=== PATIENT | male | born 1940 | race Caucasian/White ===

== ENCOUNTER 2020-02-27 16:57 | Emergency (ER) | payer MEDICARE, OTHER ==
--- NOTE | 2020-02-27 17:11 | EDM.PDOC ---
ED HPI GENERAL MEDICAL PROBLEM - General Stated Complaint: FEVER. CHILLS. SENT FROM [facility]ALK[facility]IN[facility] Time Seen by Provider: 02/27/20 17:08 Source of Information: Reports: Patient History Limitations: Reports: No Limitations - History of Present Illness INITIAL COMMENTS - FREE TEXT/NARRATIVE: 79-year-old male who reports onset of headache this morning when he awoke and it was a frontal headache that was a dull type pain that he rated as a 2/10. It was unusual because he states he usually does not have headaches. He also reports that he felt somewhat cold and chilled and his took his temperature and it was 101F. He also had some malaise he denies any cough. No sore throat. No chest pain. No neck pain or stiffness. No arm or leg weakness. He has nasal congestion that is chronic but it is unchanged and the headache has been coming and going to the day and currently has no pain. He rates his pain as a 0/10. He did urinate this morning but has not really urinated much since then and he reports that he has had no appetite today with decreased oral intake. He was seen initially in the walk-in clinic and had some testing performed which for the most part was negative. He did have a platelet count 137,000 and a slightly elevated lactate with some evidence of renal insufficiency or dehydration. He has no fever now. He was sent over to the emergency department secondary to concerns of needing IV fluids and for reevaluation and potential further workup. He has had no dysuria or hematuria. He has no back pain. The body aches are mostly just pains which were mild and he really does not complain of any of that now. He has had no nausea, vomiting or diarrhea. He has no open wounds anywhere in. There are no areas of redness or soreness on his skin or his feet. He has had problems with need for amputations on his toes but he has no concern on them now. He does state that he was outside of it yesterday and it was rather hot. He does not feel that he drank enough fluids yesterday and he is somewhat concerned that he may be dehydrated. There are no other associated signs or symptoms. There are no other modifying factors. 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) - Related Data Allergies Allergy/AdvReac Type Severity Reaction Status Date / Time tetanus toxoid, adsorbed Allergy Swelling Verified 06/25/14 13:26 Home Meds: Home Meds Insulin Glarg,Human.Rec.Analog [Lantus] 55 units SUBCUT BID 03/09/14 [History] Liraglutide [Victoza] 1.8 mg SUBCUT DAILY 03/09/14 [History] Acetaminophen [Tylenol Extra Strength] 1,000 mg PO Q4HR PRN 06/25/14 [History] B Complex & C No.20/Folic Acid [Virt-Caps (1 mg FA B Comp W-C)] 1 cap PO DAILY 06/25/14 [History] Chlorthalidone 25 mg PO DAILY 06/25/14 [History] Cholecalciferol (Vitamin D3) [Vitamin D3] 1,000 unit PO DAILY 06/25/14 [History] Fluticasone Propionate [Flonase] 2 spray NASBOTH BID 06/25/14 [History] Insulin Aspart [NovoLOG] 32 units SUBCUT ACBRK 06/25/14 [History] Insulin Aspart [NovoLOG] 38 units SUBCUT ASDIRECTED 06/25/14 [History] Lisinopril 30 mg PO DAILY 06/25/14 [History] Omeprazole [Prilosec] 20 mg PO DAILY 06/25/14 [History] Pregabalin [Lyrica] 100 mg PO BID 06/25/14 [History] Vit C/Vit E/Lutein/Minerals 1 [Prosight with Lutein] 1 cap PO DAILY 06/25/14 [History] atorvaSTATin [Lipitor] 10 mg PO DAILY 06/25/14 [History] carvediloL [Carvedilol] 50 mg PO BID 06/25/14 [History] oxyCODONE 5 mg PO QID PRN 06/25/14 [History] cephALEXin [Keflex] 500 mg PO TID 10 Days #30 cap 02/27/20 [Rx] Past Medical History Cardiovascular History: Reports: High Cholesterol, Hypertension Gastrointestinal History: Reports: GERD Endocrine/Metabolic History: Reports: Diabetes, Type II (On insulin) - Past Surgical History GI Surgical History: Reports: Appendectomy, Colon, Colonoscopy Musculoskeletal Surgical History: Reports: Amputation (Multiple toes on both feet), Hip Replacement (Bilateral total hip replacements), Knee Replacement (Bilateral total knee replacements), Shoulder Surgery (Bilateral rotator cuff surgery) Social & Family History - Tobacco Use Smoking Status *Q: Former Smoker (Quit in 1985.) - Alcohol Use Alcohol Use History: Yes Alcohol Use Frequency: Daily (Drinks a glass of wine about every day. Also occasionally has a mixed drink.) - Living Situation & Occupation Living situation: Reports: Occupation: Retired ED ROS GENERAL - Review of Systems Review Of Systems: See Below Constitutional: Reports: Fever, Chills, Malaise HEENT: Reports: No Symptoms Respiratory: Reports: No Symptoms Cardiovascular: Reports: No Symptoms Endocrine: Reports: No Symptoms GI/Abdominal: Reports: No Symptoms : Reports: No Symptoms Musculoskeletal: Reports: Other (Some body aches.) Skin: Reports: No Symptoms Neurological: Reports: Headache Hematologic/Lymphatic: Reports: No Symptoms Immunologic: Reports: No Symptoms ED EXAM, GENERAL - Physical Exam Exam: See Below Exam Limited By: No Limitations General Appearance: Alert, WD/WN, No Apparent Distress Eye Exam: Bilateral Eye: EOMI, Normal Inspection Ears: Normal External Exam, Hearing Grossly Normal Ear Exam: Bilateral Ear: Auricle Normal Nose: Normal Inspection, Normal Mucosa, No Blood Throat/Mouth: Normal Voice, No Airway Compromise, Other (Dry mucous membranes. No posterior pharyngeal erythema.) Head: Atraumatic, Normocephalic Neck: Normal Inspection, Supple, Non-Tender, Full Range of Motion Respiratory/Chest: No Respiratory Distress, Lungs Clear, Normal Breath Sounds, No Accessory Muscle Use, Chest Non-Tender Cardiovascular: Normal Peripheral Pulses, Regular Rate, Rhythm, No JVD, No Murmur Peripheral Pulses: 2+: Radial (L), Radial (R) GI/Abdominal: Normal Bowel Sounds, Soft, Non-Tender, No Mass, Other (Somewhat protuberant) Back Exam: Normal Inspection, Full Range of Motion Extremities: Normal Inspection, Normal Range of Motion, Non-Tender, No Pedal Edema, Normal Capillary Refill Neurological: Alert, Oriented, CN II-XII Intact, Normal Cognition, No Motor/Sensory Deficits Psychiatric: Normal Affect Skin Exam: Warm, Dry, Intact, Normal Color, No Rash Lymphatic: No Adenopathy Course - Vital Signs Last Recorded V/S: Last Vital Signs Temp 36.4 C 02/27/20 17:00 Pulse 65 02/27/20 17:00 Resp 16 02/27/20 17:00 BP 139/78 02/27/20 17:00 Pulse Ox 97 02/27/20 17:00 Orthostatic Blood Pressure [ 139/71 Standing] Orthostatic Blood Pressure [ 137/67 Sitting] Orthostatic Blood Pressure [ 132/70 Supine] - Orders/Labs/Meds Orders: Active Orders 24 hr Category Date Time Status Orthostatic Vital Signs [RC] ONETIME Care 02/27/20 19:06 Active Chest 2V [CR] Stat Exams 02/27/20 17:25 Taken A. PHAGOCYTOPHILUM PCR Urgent Lab 02/27/20 18:00 Received CULTURE URINE [RM] Stat Lab 02/27/20 18:55 Received LYME (B. BURGDORFERI) PCR Urgent Lab 02/27/20 18:00 Received Sodium Chloride 0.9% [Saline Flush] Med 02/27/20 17:25 Active 10 ml FLUSH ASDIRECTED PRN Peripheral IV Insertion Adult [OM.PC] Routine Oth 02/27/20 17:25 Ordered Medication Orders Sodium Chloride (Saline Flush) 10 ml FLUSH ASDIRECTED PRN PRN Reason: Keep Vein Open Last Admin: 02/27/20 19:31 Dose: 10 ml Documented by: Admin: 02/27/20 17:45 Dose: 10 ml Documented by: RIMA Labs: Laboratory Tests 02/27/20 02/27/20 Range/Units 15:45 18:49 Magnesium 1.2 L* (1.8-2.5) mg/dL Urine Color Yellow (YELLOW) Urine Appearance Slightly cloudy (CLEAR) Urine pH 5.0 (5.0-6.5) Ur Specific [place] 1.010 (1.010-1.025) Urine Protein Negative (NEGATIVE) mg/dL Urine Glucose (UA) Normal (NORMAL) mg/dL Urine Ketones Negative (NEGATIVE) mg/dL Urine Occult Blood Negative (NEGATIVE) Urine Nitrite Negative (NEGATIVE) Urine Bilirubin Negative (NEGATIVE) Urine Urobilinogen Normal (NEGATIVE) mg/dL Ur Leukocyte Esterase Moderate H (NEGATIVE) Urine RBC 0-5 (0-5) Urine WBC 5-10 H (0-5) Ur Squamous Epith Cells Occasional (NS,R,O) Urine Bacteria Many H (NS) Meds: Medications Generic Name Dose Route Start Last Admin Trade Name Freq PRN Reason Stop Dose Admin Sodium Chloride 10 ml 02/27/20 17:25 02/27/20 19:31 Saline Flush FLUSH 10 ml ASDIRECTED PRN Administration Keep Vein Open Discontinued Medications Generic Name Dose Route Start Last Admin Trade Name Freq PRN Reason Stop Dose Admin Ceftriaxone Sodium 2 gm 02/27/20 19:22 02/27/20 19:29 Rocephin IVPUSH 02/27/20 19:23 2 gm ONETIME ONE Administration Sodium Chloride 1,000 mls @ 999 mls/hr 02/27/20 17:27 02/27/20 17:40 Normal Saline IV 02/27/20 18:27 999 mls/hr .BOLUS ONE Administration Magnesium Sulfate 2 gm/ Premix 50 mls @ 150 mls/hr 02/27/20 17:52 02/27/20 18:01 IV 02/27/20 18:11 150 mls/hr ONETIME ONE Administration - Radiology Interpretation Free Text/Narrative:: Chest x-ray p.m. lateral shows no acute disease. - Re-Assessments/Exams Free Text/Narrative Re-Assessment/Exam: 02/27/20 17:45: Patient does have a magnesium level of 1.2. His chest x-ray looks clear. He is receiving IV normal saline as a bolus and we are awaiting a urine specimen for testing. I did order labs for anaplasmosis and Lyme testing. He remains hemodynamically stable. 02/27/20 19:20: Patient feels well. Orthostatic vital signs show no change. He has no dizziness or weakness with standing. His urine does show evidence of a urinary tract infection and I did send his urine for culture. I will treat the patient with Rocephin 2 g IV and he appears stable for discharge with normal blood pressure and pulse and no evidence of sepsis at this time. I will discharge the patient with Keflex 500 mg 3 times a day for 10 days. He is encouraged to increase his fluid intake. He should avoid any hot environments. He should follow-up with his primary provider this next week. Precautions and reasons for return to the emergency department were discussed with the patient while he was in the emergency department were detailed in the patient's discharge instructions. Departure - Departure Time of Disposition: 19:45 Disposition: Home, Self-Care 01 Condition: Good (Improved) Clinical Impression: Dehydration, Renal insufficiency UTI (urinary tract infection) Qualifiers: Urinary tract infection type: site unspecified Hematuria presence: without hematuria Qualified Code(s): N39.0 - Urinary tract infection, site not specified - Discharge Information Prescriptions: cephALEXin [Keflex] 500 mg PO TID 10 Days #30 cap Instructions: Urinary Tract Infection, Adult, [id number], Dehydration, Adult, [id number], Rehydration, Adult, Fever, Adult, [id number] Referrals: PCP,None [Ordering Only Provider] - Additional Instructions: Your blood tests did show some evidence of dehydration. They were otherwise reassuring except for a low magnesium level. Your urine test showed evidence of a urinary tract infection. Your chest x-ray was normal. You were given replacement of magnesium emergency department and I will place you on magnesium tablets for the next 5 days. I am also placing you on an antibiotic (Keflex 500 mg) to treat your urinary tract infection. Follow-up with your primary doctor this coming week for recheck and for recheck of your magnesium level. Back to the emergency department for high fever, unrelenting vomiting, worsening weaknes s, shaking chills or any other concerning sign or symptom. Sepsis Event Note (ED) - Focused Exam Vital Signs: Vital Signs Temp Pulse Resp BP Pulse Ox 02/27/20 17:00 36.4 C 65 16 139/78 97 - My Orders Last 24 Hours: My Active Orders 02/27/20 17:25 Chest 2V [CR] Stat Sodium Chloride 0.9% [Saline Flush] 10 ml FLUSH ASDIRECTED PRN Peripheral IV Insertion Adult [OM.PC] Routine 02/27/20 18:00 A. PHAGOCYTOPHILUM PCR Urgent LYME (B. BURGDORFERI) PCR Urgent 02/27/20 18:55 CULTURE URINE [RM] Stat 02/27/20 19:06 Orthostatic Vital Signs [RC] ONETIME - Assessment/Plan Last 24 Hours: My Active Orders 02/27/20 17:25 Chest 2V [CR] Stat Sodium Chloride 0.9% [Saline Flush] 10 ml FLUSH ASDIRECTED PRN Peripheral IV Insertion Adult [OM.PC] Routine 02/27/20 18:00 A. PHAGOCYTOPHILUM PCR Urgent LYME (B. BURGDORFERI) PCR Urgent 02/27/20 18:55 CULTURE URINE [RM] Stat 02/27/20 19:06 Orthostatic Vital Signs [RC] ONETIME
[2020-02-27] MEDS ORDERED: Sodium Chloride 0.9% 1,000 ML IV ONE (17:27)
[2020-02-27] MEDS: Sodium Chloride 0.9% 10 ML Syringe FLUSH PRN ×2 (17:45→19:31)
[2020-02-27] MEDS ORDERED: Magnesium Sulfate/Water 2 GM in Premix Bag 1 BAG IV ONE (17:52)
[2020-02-27] MEDS ORDERED: cefTRIAXone 2 GM Vial IVPUSH ONE (19:22)
[2020-02-27 19:49] VITALS: BP 139/71; PULSE 63
--- NOTE | 2020-02-29 10:53 | CR ---
CHEST TWO VIEWS INDICATION: Fever. Chills. PA and lateral views of the chest 02/27/2020 were compared with 03/09/2014. The heart is normal in size and shape. The aorta is tortuous with calcification in the arch and descending portion. Bridging hyperostotic changes noted in the mid thoracic spine. Prominent AP diameter, flattening of the diaphragm leaves and hyperaeration suggest COPD. An active infiltrate or effusion was not identified. However, there is mild bronchial wall cuffing at the left lower lung field, which may be on the basis of fibrosis and/or active peribronchial disease and should be correlated clinically. MTDD
== END 2020-02-27 20:06 | disposition home or self-care (01) ==
LOC: FB.ED 16:57
DX: E86.0 Dehydration (principal); N39.0 Urinary tract infection, site not specified; N28.9 Disorder of kidney and ureter, unspecified; I10 Essential (primary) hypertension; E78.00 Pure hypercholesterolemia, unspecified; K21.9 Gastro-esophageal reflux disease without esophagitis; E11.9 Type 2 diabetes mellitus without complications; Z87.891 Personal history of nicotine dependence; Z90.49 Acquired absence of other specified parts of digestive tract; Z98.890 Other specified postprocedural states; Z88.7 Allergy status to serum and vaccine; Z79.4 Long term (current) use of insulin; Z79.899 Other long term (current) drug therapy; R51 Headache; R50.9 Fever, unspecified; Z20.828 Contact with and (suspected) exposure to other viral communicable diseases
CPT/HCPCS: 36415; 71046; 80053; 81001; 83605; 83735; 85025; 87086; 87088; 87186; 87476; 87798; 87804; 96365; 96375; 99203; 99283; 99284; J0696; J3475; J7030; U0002

== ENCOUNTER 2021-01-22 13:56 | Inpatient (IN) | payer MEDICARE, OTHER ==
--- NOTE | 2021-01-22 14:33 | EDM.PDOC ---
ED HPI GENERAL MEDICAL PROBLEM - General Chief Complaint: Fever Stated Complaint: POSSIBLE UTI Time Seen by Provider: 01/22/21 14:10 Source of Information: Reports: EMS, Family History Limitations: Reports: Altered Mental Status - History of Present Illness INITIAL COMMENTS - FREE TEXT/NARRATIVE: 80-year-old gentleman with past medical history significant for colon cancer, diabetes mellitus type 2, chronic kidney disease, obesity, obstructive sleep apnea, was brought to the emergency department at request of his spouse by EMS secondary to chills and altered mental status. Onset: Sudden abdominal Pain Score (Numeric/FACES): 4 - Related Data Allergies Allergy/AdvReac Type Severity Reaction Status Date / Time tetanus toxoid, adsorbed Allergy Swelling Verified 06/25/14 13:26 Home Meds: Home Meds Insulin Glarg,Human.Rec.Analog [Lantus] 55 units SUBCUT BID 03/09/14 [History] Liraglutide [Victoza] 1.8 mg SUBCUT DAILY 03/09/14 [History] Acetaminophen [Tylenol Extra Strength] 1,000 mg PO Q4HR PRN 06/25/14 [History] B Complex & C No.20/Folic Acid [Virt-Caps (1 mg FA B Comp W-C)] 1 cap PO DAILY 06/25/14 [History] Chlorthalidone 25 mg PO DAILY 06/25/14 [History] Cholecalciferol (Vitamin D3) [Vitamin D3] 1,000 unit PO DAILY 06/25/14 [History] Fluticasone Propionate [Flonase] 2 spray NASBOTH BID 06/25/14 [History] Insulin Aspart [NovoLOG] 32 units SUBCUT ACBRK 06/25/14 [History] Insulin Aspart [NovoLOG] 38 units SUBCUT ASDIRECTED 06/25/14 [History] Lisinopril 30 mg PO DAILY 06/25/14 [History] Omeprazole [Prilosec] 20 mg PO DAILY 06/25/14 [History] Pregabalin [Lyrica] 100 mg PO BID 06/25/14 [History] Vit C/Vit E/Lutein/Minerals 1 [Prosight with Lutein] 1 cap PO DAILY 06/25/14 [History] atorvaSTATin [Lipitor] 10 mg PO DAILY 06/25/14 [History] carvediloL [Carvedilol] 50 mg PO BID 06/25/14 [History] oxyCODONE 5 mg PO QID PRN 06/25/14 [History] cephALEXin [Keflex] 500 mg PO TID 10 Days #30 cap 02/27/20 [Rx] Past Medical History Cardiovascular History: Reports: High Cholesterol, Hypertension Gastrointestinal History: Reports: GERD Endocrine/Metabolic History: Reports: Diabetes, Type II (On insulin) Oncologic (Cancer) History: Reports: Colon - Past Surgical History GI Surgical History: Reports: Appendectomy, Colon, Colonoscopy Musculoskeletal Surgical History: Reports: Amputation (Multiple toes on both feet), Hip Replacement (Bilateral total hip replacements), Knee Replacement (Bilateral total knee replacements), Shoulder Surgery (Bilateral rotator cuff surgery) Social & Family History - Caffeine Use Caffeine Use: Reports: Coffee - Living Situation & Occupation Living situation: Reports: Occupation: Retired ED ROS GENERAL - Review of Systems Review Of Systems: See Below Constitutional: Reports: Fever, Chills, Malaise, Weakness, Diaphoresis HEENT: Reports: No Symptoms Respiratory: Reports: No Symptoms Cardiovascular: Reports: No Symptoms Endocrine: Reports: No Symptoms GI/Abdominal: Reports: No Symptoms : Reports: No Symptoms Musculoskeletal: Reports: No Symptoms Skin: Reports: No Symptoms Neurological: Reports: No Symptoms Psychiatric: Reports: No Symptoms Hematologic/Lymphatic: Reports: No Symptoms Immunologic: Reports: No Symptoms ED EXAM, GENERAL - Physical Exam Exam: See Below Exam Limited By: Altered Mental Status General Appearance: Lethargic Eye Exam: Bilateral Eye: EOMI Head: Atraumatic, Normocephalic Respiratory/Chest: Crackles Cardiovascular: Normal Peripheral Pulses, Other. No: No Edema Peripheral Pulses: 1+: Dorsalis Pedis (L), Dorsalis Pedis (R), 2+: Radial (L), Radial (R) GI/Abdominal: Non-Tender, Hernia Extremities: Pedal Edema, Other (Several partial amputations of digits of the feet) Neurological: Disoriented, Slow to Respond Skin Exam: Cool Course - Vital Signs Last Recorded V/S: Last Vital Signs Temp 39.5 C H 01/22/21 14:30 Pulse 92 01/22/21 14:30 Resp 20 01/22/21 14:30 BP 152/75 H 01/22/21 14:30 Pulse Ox 98 01/22/21 14:30 - Orders/Labs/Meds Orders: Active Orders 24 hr Category Date Time Status Patient Status Manage Transfer [TRANSFER] Routine ADT 01/22/21 16:07 Ordered CULTURE URINE [RM] Stat Lab 01/22/21 14:19 Received REFLEX LACTIC ACID YES OR NO [CHEM] Routine Lab 01/22/21 14:46 Received Sodium Chloride 0.9% [Normal Saline] 1,000 ml Med 01/22/21 15:22 Active IV .BOLUS Medication Orders Sodium Chloride (Normal Saline) 1,000 mls @ 999 mls/hr IV .BOLUS ONE Stop: 01/22/21 16:22 Last Admin: 01/22/21 15:23 Dose: 999 mls/hr Documented by: THALIACAL Labs: Laboratory Tests 01/22/21 01/22/21 01/22/21 Range/Units 14:19 14:20 14:20 WBC 13.8 H (3.2-10.1) x10-3/uL RBC 4.61 (3.90-5.90) x10(6)uL Hgb 12.6 L (12.9-17.7) g/dL Hct 39.5 (38.3-50.1) % MCV 85.7 (80.8-98.7) fL MCH 27.4 (27.0-33.3) pg MCHC 31.9 (28.7-35.3) g/dL RDW 14.1 (12.4-15.0) % Plt Count 135 (117-477) x10(3)uL MPV 10.1 (6.7-11.0) fL Add Manual Diff Yes Neutrophils % (Manual) 91 H (46-82) % Lymphocytes % (Manual) 5 L (13-37) % Monocytes % (Manual) 4 (4-12) % Sodium 145 (135-145) mmol/L Potassium 4.0 (3.5-5.3) mmol/L Chloride 105 (100-110) mmol/L Carbon Dioxide 26 (21-32) mmol/L BUN 28 H (7-18) mg/dL Creatinine 1.6 H (0.70-1.30) mg/dL Est Cr Clr Drug Dosing TNP Estimated GFR (MDRD) 42 L (>60) BUN/Creatinine Ratio 17.5 (9-20) Glucose 156 H (80-116) mg/dL Lactic Acid (0.4-2.0) mmol/L Calcium 9.7 (8.6-10.2) mg/dL Total Bilirubin 0.7 (0.1-1.3) mg/dL AST 20 D (5-25) IU/L ALT 35 D (12-36) U/L Alkaline Phosphatase 77 (56-112) IU/L Total Protein 7.4 (6.0-8.0) g/dL Albumin 3.5 (3.2-4.6) g/dL Globulin 3.9 g/dL Albumin/Globulin Ratio 0.9 Urine Color Yellow (YELLOW) Urine Appearance Slightly cloudy (CLEAR) Urine pH 6.0 (5.0-6.5) Ur Specific [place] 1.010 (1.010-1.025) Urine Protein Negative (NEGATIVE) mg/dL Urine Glucose (UA) Normal (NORMAL) mg/dL Urine Ketones Negative (NEGATIVE) mg/dL Urine Occult Blood Trace (NEGATIVE) Urine Nitrite Negative (NEGATIVE) Urine Bilirubin Negative (NEGATIVE) Urine Urobilinogen Normal (NEGATIVE) mg/dL Ur Leukocyte Esterase Moderate H (NEGATIVE) Urine RBC 0-5 (0-5) Urine WBC 10-20 H (0-5) Ur Squamous Epith Cells Few H (NS,R,O) Urine Bacteria Many H (NS) 01/22/21 Range/Units 14:20 WBC (3.2-10.1) x10-3/uL RBC (3.90-5.90) x10(6)uL Hgb (12.9-17.7) g/dL Hct (38.3-50.1) % MCV (80.8-98.7) fL MCH (27.0-33.3) pg MCHC (28.7-35.3) g/dL RDW (12.4-15.0) % Plt Count (117-477) x10(3)uL MPV (6.7-11.0) fL Add Manual Diff Neutrophils % (Manual) (46-82) % Lymphocytes % (Manual) (13-37) % Monocytes % (Manual) (4-12) % Sodium (135-145) mmol/L Potassium (3.5-5.3) mmol/L Chloride (100-110) mmol/L Carbon Dioxide (21-32) mmol/L BUN (7-18) mg/dL Creatinine (0.70-1.30) mg/dL Est Cr Clr Drug Dosing Estimated GFR (MDRD) (>60) BUN/Creatinine Ratio (9-20) Glucose (80-116) mg/dL Lactic Acid 2.4 H* (0.4-2.0) mmol/L Calcium (8.6-10.2) mg/dL Total Bilirubin (0.1-1.3) mg/dL AST (5-25) IU/L ALT (12-36) U/L Alkaline Phosphatase (56-112) IU/L Total Protein (6.0-8.0) g/dL Albumin (3.2-4.6) g/dL Globulin g/dL Albumin/Globulin Ratio Urine Color (YELLOW) Urine Appearance (CLEAR) Urine pH (5.0-6.5) Ur Specific [place] (1.010-1.025) Urine Protein (NEGATIVE) mg/dL Urine Glucose (UA) (NORMAL) mg/dL Urine Ketones (NEGATIVE) mg/dL Urine Occult Blood (NEGATIVE) Urine Nitrite (NEGATIVE) Urine Bilirubin (NEGATIVE) Urine Urobilinogen (NEGATIVE) mg/dL Ur Leukocyte Esterase (NEGATIVE) Urine RBC (0-5) Urine WBC (0-5) Ur Squamous Epith Cells (NS,R,O) Urine Bacteria (NS) Meds: Medications Generic Name Dose Route Start Last Admin Trade Name Freq PRN Reason Stop Dose Admin Sodium Chloride 1,000 mls @ 999 mls/hr 01/22/21 15:22 01/22/21 15:23 Normal Saline IV 01/22/21 16:22 999 mls/hr .BOLUS ONE Administration Discontinued Medications Generic Name Dose Route Start Last Admin Trade Name Freq PRN Reason Stop Dose Admin Ceftriaxone Sodium 1 gm/ 50 mls @ 200 mls/hr 01/22/21 15:01 01/22/21 15:23 Sodium Chloride IV 01/22/21 15:15 200 mls/hr ONETIME ONE Administration Departure - Departure Time of Disposition: 16:09 Disposition: Admitted As Inpatient 64 Condition: Fair Clinical Impression: UTI (urinary tract infection) Qualifiers: Urinary tract infection type: site unspecified Hematuria presence: without hematuria Qualified Code(s): N39.0 - Urinary tract infection, site not specified - Discharge Information *PRESCRIPTION DRUG MONITORING PROGRAM REVIEWED*: Not Applicable *COPY OF PRESCRIPTION DRUG MONITORING REPORT IN PATIENT JERMAINE: Not Applicable Forms: ED Department Discharge Sepsis Event Note (ED) - Evaluation Current Stage of Sepsis: Sepsis Possible Source of Sepsis: GI Tract/Intra-abdominal - Focused Exam Sepsis Event Note Statement: Focused Sepsis Exam Completed Vital Signs: Vital Signs Temp Pulse Resp BP Pulse Ox 01/22/21 14:30 39.5 C H 92 20 152/75 H 98 Respiratory Effort Without Exertion: Diaphragmatic Capillary Refill, Detail: Less than/Equal to (</=) 2 Seconds Pulse Description: 2+ Normal Peripheral Pulse Location: Radial Skin Exam (Focused Sepsis): Normal Turgor Date Exam was Performed: 01/22/21 Time Exam was Performed: 12:45 - My Orders Last 24 Hours: My Active Orders 01/22/21 14:19 CULTURE URINE [RM] Stat 01/22/21 14:46 REFLEX LACTIC ACID YES OR NO [CHEM] Routine 01/22/21 15:22 Sodium Chloride 0.9% [Normal Saline] 1,000 ml IV .BOLUS 01/22/21 16:07 Patient Status Manage Transfer [TRANSFER] Routine - Assessment/Plan Last 24 Hours: My Active Orders 01/22/21 14:19 CULTURE URINE [RM] Stat 01/22/21 14:46 REFLEX LACTIC ACID YES OR NO [CHEM] Routine 01/22/21 15:22 Sodium Chloride 0.9% [Normal Saline] 1,000 ml IV .BOLUS 01/22/21 16:07 Patient Status Manage Transfer [TRANSFER] Routine
[2021-01-22] MEDS ORDERED: cefTRIAXone 1 GM in Sodium Chloride 0.9% 50 ML IV ONE (15:01)
[2021-01-22] MEDS ORDERED: Sodium Chloride 0.9% 1,000 ML IV ONE (15:22)
[2021-01-22] MEDS: Sodium Chloride 0.9% 1,000 ML IV SCH (16:45)
[2021-01-22] MEDS ORDERED: Acetaminophen 325 MG Tab PO PRN (17:09)
[2021-01-22] MEDS ORDERED: Ibuprofen 400 MG Tab PO PRN (17:30)
[2021-01-22] MEDS ORDERED: 50% Dextrose in Water 50 ML Syringe IVPUSH PRN (17:34)
[2021-01-22] MEDS ORDERED: Insulin Lispro 100 Unit/ML 3 ML KwikPen SUBCUT PRN (17:34)
[2021-01-22] MEDS ORDERED: Glucagon,Human Recombinant 1 MG Vial IM PRN (17:34)
--- NOTE | 2021-01-22 17:40 | PCM.HP.2 ---
H&P History of Present Illness - General Date of Service: 01/22/21 Admit Problem/Dx: Admission Diagnosis/Problem Admission Diagnosis/Problem Urinary tract infection Source of Information: EMS Notes Reviewed, Family History Limitations: Reports: Altered Mental Status - History of Present Illness Initial Comments - Free Text/Narative: Iker was brought in by EMS today for altered mental status and fever. When his got up this morning, he was not making sense, fever, she is unsure if he took his morning medications. She thought he was in a diabetic coma. He was fine yesterday, did not complain of any pain, anything bothering him. He has had UTIs in the past. She states she hasn't noticed him going to the bathroom more, does wear incontinent brief at night but not incontinent of stool. She stated that he was shaking, chilled today. Temp in 104F in ER. History limited due to patient's mental status. History of adenocarcinoma of colon, history of colon resection in 2017, Diabetes, CHF, Hypertension, ventral hernia repair. Last labs at [facility] 05/2020, Cr 1.3. His stated he had a couple of teeth pulled a few weeks ago, but no issues with that. abdominal Pain Score (Numeric/FACES): 4 - Related Data Allergies/Adverse Reactions: Allergies Allergy/AdvReac Type Severity Reaction Status Date / Time tetanus toxoid, adsorbed Allergy Swelling Verified 01/22/21 16:48 Home Medications: Home Meds Liraglutide [Victoza] 1.8 mg SUBCUT DAILY 03/09/14 [History] Acetaminophen [Tylenol Extra Strength] 1,000 mg PO Q4HR PRN 06/25/14 [History] Cholecalciferol (Vitamin D3) [Vitamin D3] 1,000 unit PO DAILY 06/25/14 [History] Fluticasone Propionate [Flonase] 1 spray NASBOTH BEDTIME 06/25/14 [History] Lisinopril 20 mg PO DAILY 06/25/14 [History] Omeprazole [Prilosec] 20 mg PO DAILY 06/25/14 [History] Pregabalin [Lyrica] 150 mg PO BID 06/25/14 [History] atorvaSTATin [Lipitor] 10 mg PO DAILY 06/25/14 [History] carvediloL [Carvedilol] 50 mg PO BID 06/25/14 [History] Acetaminophen [Acetaminophen Extra Strength] 1,000 mg PO BID 01/22/21 [History] Aspirin 81 mg PO DAILY 01/22/21 [History] Beta-Carotene(A) w/C & E/Min [Prosight] 1 tab PO DAILY 01/22/21 [History] Chlorthalidone 25 mg PO DAILY 01/22/21 [History] Ferrous Sulfate 324 mg PO BID 01/22/21 [History] Insulin Glargine,Hum.Rec.Anlog [Toujeo Solostar] 120 units SUBCUT BEDTIME 01/22/21 [History] Mupirocin Oint [Bactroban Oint] 1 applic PO TID 01/22/21 [History] allopurinoL [Zyloprim] 100 mg PO DAILY 01/22/21 [History] amLODIPine [Norvasc] 5 mg PO DAILY 01/22/21 [History] metFORMIN [Glucophage] 1,000 mg PO BID 01/22/21 [History] traMADol HCl [Tramadol HCl] 50 mg PO Q6HR PRN 01/22/21 [History] Past Medical History Cardiovascular History: Reports: High Cholesterol, Hypertension Gastrointestinal History: Reports: GERD Endocrine/Metabolic History: Reports: Diabetes, Type II Oncologic (Cancer) History: Reports: Colon - Past Surgical History GI Surgical History: Reports: Appendectomy, Colon, Colonoscopy Musculoskeletal Surgical History: Reports: Amputation, Hip Replacement, Knee Replacement, Shoulder Surgery Other Musculoskeletal Surgeries/Procedures:: rotator cuff repair, ray amputation- 1 toe left on the left foot, 4.5 toes left on right foot Oncologic Surgical History: Reports: Other (See Below) Other Oncologic Surgeries/Procedures: colonic tumor excision Social & Family History - Tobacco Use Tobacco Use Status *Q: Former Tobacco User Used Tobacco, but Quit: Yes Month/Year Tobacco Last Used: 1999 Second Hand Smoke Exposure: No - Caffeine Use Caffeine Use: Reports: Coffee - Recreational Drug Use Recreational Drug Use: No - Living Situation & Occupation Living situation: Reports: Occupation: Retired H&P Review of Systems - Review of Systems: Review Of Systems: Unable To Obtain Reason Not Obtained: altered mental status Exam - Exam Exam: See Below - Vital Signs Vital Signs: Last Vital Signs Temp 102.6 F H 01/22/21 16:30 Pulse 98 01/22/21 16:30 Resp 32 H 01/22/21 16:30 BP 154/74 H 01/22/21 16:30 Pulse Ox 95 01/22/21 16:30 Weight: 222 lb 4.8 oz - Exam General: Obtunded (rigors) HEENT: PERRLA, Conjunctiva Clear, EOMI, Nares Patent, Posterior Pharynx Clear, TMs Clear (left, right blocked by cerumen), Other (2nd & 3rd lower molars removed, healed, no erythema). No: Mucosa Moist & [place] Neck: Trachea Midline. No: Lymphadenopathy Lungs: Clear to Auscultation, Normal Respiratory Effort, Decreased Breath Sounds (bibasilar) Cardiovascular: Regular Rate, Regular Rhythm GI/Abdominal Exam: Normal Bowel Sounds, Soft, Non-Tender, No Distention, Other (ventral incision) (Male) Exam: Deferred Rectal (Males) Exam: Deferred Extremities: Normal Capillary Refill, Pedal Edema (trace BLE) Peripheral Pulses: 2+: Radial (L), Radial (R) Skin: Ecchymosis (RLQ), Other (Hot to touch, flushed) Neuro Extensive - Mental Status: Opens Eyes to Commands - Patient Data Lab Results Last 24 hrs: Laboratory Results - last 24 hr 01/22/21 01/22/21 01/22/21 Range/Units 14:19 14:20 14:20 WBC 13.8 H (3.2-10.1) x10-3/uL RBC 4.61 (3.90-5.90) x10(6)uL Hgb 12.6 L (12.9-17.7) g/dL Hct 39.5 (38.3-50.1) % MCV 85.7 (80.8-98.7) fL MCH 27.4 (27.0-33.3) pg MCHC 31.9 (28.7-35.3) g/dL RDW 14.1 (12.4-15.0) % Plt Count 135 (117-477) x10(3)uL MPV 10.1 (6.7-11.0) fL Add Manual Diff Yes Neutrophils % (Manual) 91 H (46-82) % Lymphocytes % (Manual) 5 L (13-37) % Monocytes % (Manual) 4 (4-12) % Sodium 145 (135-145) mmol/L Potassium 4.0 (3.5-5.3) mmol/L Chloride 105 (100-110) mmol/L Carbon Dioxide 26 (21-32) mmol/L BUN 28 H (7-18) mg/dL Creatinine 1.6 H (0.70-1.30) mg/dL Est Cr Clr Drug Dosing TNP Estimated GFR (MDRD) 42 L (>60) BUN/Creatinine Ratio 17.5 (9-20) Glucose 156 H (80-116) mg/dL Lactic Acid (0.4-2.0) mmol/L Calcium 9.7 (8.6-10.2) mg/dL Total Bilirubin 0.7 (0.1-1.3) mg/dL AST 20 D (5-25) IU/L ALT 35 D (12-36) U/L Alkaline Phosphatase 77 (56-112) IU/L Total Protein 7.4 (6.0-8.0) g/dL Albumin 3.5 (3.2-4.6) g/dL Globulin 3.9 g/dL Albumin/Globulin Ratio 0.9 Urine Color Yellow (YELLOW) Urine Appearance Slightly cloudy (CLEAR) Urine pH 6.0 (5.0-6.5) Ur Specific Equality 1.010 (1.010-1.025) Urine Protein Negative (NEGATIVE) mg/dL Urine Glucose (UA) Normal (NORMAL) mg/dL Urine Ketones Negative (NEGATIVE) mg/dL Urine Occult Blood Trace (NEGATIVE) Urine Nitrite Negative (NEGATIVE) Urine Bilirubin Negative (NEGATIVE) Urine Urobilinogen Normal (NEGATIVE) mg/dL Ur Leukocyte Esterase Moderate H (NEGATIVE) Urine RBC 0-5 (0-5) Urine WBC 10-20 H (0-5) Ur Squamous Epith Cells Few H (NS,R,O) Urine Bacteria Many H (NS) 01/22/ Range/Units 14:20 WBC (3.2-10.1) x10-3/uL RBC (3.90-5.90) x10(6)uL Hgb (12.9-17.7) g/dL Hct (38.3-50.1) % MCV (80.8-98.7) fL MCH (27.0-33.3) pg MCHC (28.7-35.3) g/dL RDW (12.4-15.0) % Plt Count (117-477) x10(3)uL MPV (6.7-11.0) fL Add Manual Diff Neutrophils % (Manual) (46-82) % Lymphocytes % (Manual) (13-37) % Monocytes % (Manual) (4-12) % Sodium (135-145) mmol/L Potassium (3.5-5.3) mmol/L Chloride (100-110) mmol/L Carbon Dioxide (21-32) mmol/L BUN (7-18) mg/dL Creatinine (0.70-1.30) mg/dL Est Cr Clr Drug Dosing Estimated GFR (MDRD) (>60) BUN/Creatinine Ratio (9-20) Glucose (80-116) mg/dL Lactic Acid 2.4 H* (0.4-2.0) mmol/L Calcium (8.6-10.2) mg/dL Total Bilirubin (0.1-1.3) mg/dL AST (5-25) IU/L ALT (12-36) U/L Alkaline Phosphatase (56-112) IU/L Total Protein (6.0-8.0) g/dL Albumin (3.2-4.6) g/dL Globulin g/dL Albumin/Globulin Ratio Urine Color (YELLOW) Urine Appearance (CLEAR) Urine pH (5.0-6.5) Ur Specific Equality (1.010-1.025) Urine Protein (NEGATIVE) mg/dL Urine Glucose (UA) (NORMAL) mg/dL Urine Ketones (NEGATIVE) mg/dL Urine Occult Blood (NEGATIVE) Urine Nitrite (NEGATIVE) Urine Bilirubin (NEGATIVE) Urine Urobilinogen (NEGATIVE) mg/dL Ur Leukocyte Esterase (NEGATIVE) Urine RBC (0-5) Urine WBC (0-5) Ur Squamous Epith Cells (NS,R,O) Urine Bacteria (NS) Result Diagrams: 01/22/21 14:20 01/22/21 14:20 Sepsis Event Note - Evaluation Sepsis Screening Result: Possible Sepsis Risk Current Stage of Sepsis: Sepsis Possible Source of Sepsis: Genitourinary - Focused Exam Sepsis Event Note Statement: Focused Sepsis Exam Completed Vital Signs: Vital Signs Temp Pulse Resp BP Pulse Ox 01/22/21 16:30 102.6 F H 98 32 H 154/74 H 95 01/22/21 14:30 103.1 F H 92 20 152/75 H 98 Capillary Refill, Detail: Less than/Equal to (</=) 2 Seconds Pulse Description: 2+ Normal Peripheral Pulse Location: Radial Skin Exam (Focused Sepsis): Flushed *Q Meaningful Use (ADM) - VTE *Q VTE Mechanical Contraindications *Q: At Risk for Falls - VTE Risk Assess *Q Each Risk Factor Represents 1 Point: Congestive heart failure (CHF) Total Score 1 Point Risk Factors: 1 Each Risk Factor Represents 2 Points: Malignancy (present or previous) Total Score 2 Point Risk Factors: 2 Each Risk Factor Represents 3 Points: Age 75 Years or Greater Total Score 3 Point Risk Factors: 3 Each Risk Factor Represents 5 Points: None Total Score 5 Point Risk Factors: 0 Venous Thromboembolism Risk Factor Score *Q: 6 - Problem List (1) Sepsis SNOMED Code(s): 53347374 ICD Code: A41.9 - SEPSIS, UNSPECIFIED ORGANISM Status: Acute Current Visit: Yes Problem Details: Early sepsis, Lactic acid 2.4. WBC 13.8 Qualifiers: Sepsis type: sepsis due to unspecified organism Severe sepsis shock status: without septic shock (2) UTI (urinary tract infection) SNOMED Code(s): 08344612 ICD Code: N39.0 - URINARY TRACT INFECTION, SITE NOT SPECIFIED Status: Acute Current Visit: Yes Qualifiers: Urinary tract infection type: site unspecified Hematuria presence: without hematuria Qualified Code(s): N39.0 - Urinary tract infection, site not specified (3) Altered mental status SNOMED Code(s): 532700406 ICD Code: R41.82 - ALTERED MENTAL STATUS, UNSPECIFIED Status: Acute Current Visit: No (4) Dehydration SNOMED Code(s): 31193384 ICD Code: E86.0 - DEHYDRATION Status: Acute Current Visit: No (5) Renal insufficiency SNOMED Code(s): 283264429, 521850093 ICD Code: N28.9 - DISORDER OF KIDNEY AND URETER, UNSPECIFIED Status: Acute Current Visit: No Problem Details: Baseline Cr 1.3 05/2020 (6) Diabetes mellitus SNOMED Code(s): 45993537 ICD Code: E11.9 - TYPE 2 DIABETES MELLITUS WITHOUT COMPLICATIONS Status: Chronic Current Visit: No (7) Adenocarcinoma of colon SNOMED Code(s): 892635010, 704989855 ICD Code: C18.9 - MALIGNANT NEOPLASM OF COLON, UNSPECIFIED Status: Chronic Current Visit: Yes (8) S/P colon resection SNOMED Code(s): 010625532, 96809855, 06590307, 807821823 ICD Code: Z90.49 - ACQUIRED ABSENCE OF OTHER SPECIFIED PARTS OF DIGESTIVE TRACT Status: Chronic Current Visit: Yes Onset Date: ~10/15/16 Problem List Initiated/Reviewed/Updated: Yes Orders Last 24hrs: Active Orders 24 hr Category Date Time Status Patient Status [ADT] Routine ADT 01/22/21 17:09 Active Blood Glucose Check, Bedside [RC] WITHMEALSANDBED Care 01/22/21 17:09 Active Oxygen Therapy [RC] PRN Care 01/22/21 17:09 Active Up With Assistance [RC] ASDIRECTED Care 01/22/21 17:09 Active Up to Chair [RC] ASDIRECTED Care 01/22/21 17:09 Active VTE/DVT Education [RC] Per Unit Routine Care 01/22/21 17:09 Active Vital Signs [RC] Q4H Care 01/22/21 17:09 Active Consistent Carbohydrate Diet [DIET] Diet 01/22/21 Dinner Active BASIC METABOLIC PANEL,BMP [CHEM] Routine Lab 01/23/21 06:00 Ordered CBC WITH AUTO DIFF [HEME] Routine Lab 01/23/21 06:00 Ordered CULTURE URINE [RM] Stat Lab 01/22/21 14:19 Received REFLEX LACTIC ACID YES OR NO [CHEM] Routine Lab 01/22/21 14:46 Received Acetaminophen [TylenoL] Med 01/22/21 17:09 Active 650 mg PO Q4H PRN Aspirin Med 01/23/21 09:00 Active 81 mg PO DAILY Dextrose 50% in Water Med 01/22/21 17:34 Ordered 50 ml IVPUSH ASDIRECTED PRN Glucagon,Human Recombinant [GlucaGen] Med 01/22/21 17:34 Ordered 1 mg IM ASDIRECTED PRN Ibuprofen [Motrin] Med 01/22/21 17:30 Active 400 mg PO Q6H PRN Insulin Lispro [HumaLOG] Med 01/22/21 17:34 Ordered See Protocol SUBCUT TID PRN Omeprazole [Prilosec] Med 01/23/21 09:00 Ordered 20 mg PO DAILY Pregabalin [Lyrica] Med 01/22/21 21:00 Active 150 mg PO BID Sodium Chloride 0.9% [Normal Saline] 1,000 ml Med 01/22/21 17:45 Active IV ASDIRECTED allopurinoL [Zyloprim] Med 01/23/21 09:00 Active 100 mg PO DAILY amLODIPine [Norvasc] Med 01/23/21 09:00 Active 5 mg PO DAILY atorvaSTATin [Lipitor] Med 01/23/21 09:00 Active 10 mg PO DAILY carvediloL [Coreg] Med 01/22/21 21:00 Active 50 mg PO BID cefTRIAXone [Rocephin] Med 01/23/21 15:30 Ordered 1 gm IVPUSH Q24H lisinopriL [Prinivil] Med 01/23/21 09:00 Active 20 mg PO DAILY metFORMIN [Glucophage] Med 01/22/21 18:00 Active 1,000 mg PO BIDMEALS Antiembolic Hose [OM.PC] Per Unit Routine Oth 01/22/21 17:10 Ordered Resuscitation Status Routine Resus Stat 01/22/21 17:09 Ordered Medication Orders Acetaminophen (Acetaminophen 325 Mg Tab) 650 mg PO Q4H PRN PRN Reason: Pain (Mild 1-3)/fever Allopurinol (Allopurinol 100 Mg Tab) 100 mg PO DAILY [facility] Amlodipine Besylate (Amlodipine 5 Mg Tab) 5 mg PO DAILY [facility] Aspirin (Aspirin 81 Mg Tab.Chew) 81 mg PO DAILY [facility] Atorvastatin Calcium (Atorvastatin 10 Mg Tab) 10 mg PO DAILY [facility] Carvedilol (Carvedilol 25 Mg Tab) 50 mg PO BID [facility] Ceftriaxone Sodium (Ceftriaxone 1 Gm Vial) 1 gm IVPUSH Q24H [facility] Sodium Chloride (Normal Saline) 1,000 mls @ 100 mls/hr IV ASDIRECTED PRO Ibuprofen (Ibuprofen 400 Mg Tab) 400 mg PO Q6H PRN PRN Reason: Fever Lisinopril (Lisinopril 20 Mg Tab) 20 mg PO DAILY [facility] Metformin HCl (Metformin 1,000 Mg Tab) 1,000 mg PO BIDMEALS [facility] Non-Formulary Medication (Omeprazole [Prilosec]) 20 mg PO DAILY [facility] Pregabalin (Pregabalin 75 Mg Cap) 150 mg PO BID [facility] Assessment/Plan Comment:: 1. Admit for inpatient care of Early sepsis, UTI, fever, dehydration, KENNEDY. 2. Early sepsis/UTI/altered mental status: Rocephin 1 gram IV q24h, 1st dose given in ER. Lactic acid 2.4, reflexed for repeat, pending. CBC tomorrow am. Tylenol/Ibuprofen alternating as needed fever. IVF 100 ml/hr. UC pending. 3. Dehydration/KENNEDY: NS bolus received in ER, continue at 100 ml/hr with his history of CHF. 4. DM: glucose checks qid&hs, hold Toujeo & Victoza until family brings in, Humalog sliding scale and Metformin bid. 5. DIET: Consistent carb diet. 6. Sleep apnea: his did not bring his CPAP machine with them, will do overnight oxygen as substitute. 7. Activity: Up to chair and with assistance. 8. CODE STATUS: CPR only. 9. Discharge planning: anticipate 48 hours of IV antibiotics, IVF, switch to orals once afebrile 24 hours. - Mortality Measure Prognosis:: Poor
[2021-01-22] MEDS: metFORMIN 1,000 MG Tab PO SCH (18:10)
[2021-01-22] MEDS: Acetaminophen 500 MG Tab PO PRN (18:10)
[2021-01-22] MEDS: Enoxaparin 30 MG/0.3 ML Syringe SUBCUT SCH (18:10)
[2021-01-22] MEDS: Ibuprofen 200 MG Tab PO PRN (18:10)
[2021-01-22] MEDS: Carvedilol 25 MG Tab PO SCH (20:21)
[2021-01-22] MEDS: Pregabalin 75 MG Cap PO SCH (20:21)
[2021-01-23] MEDS: Sodium Chloride 0.9% 1,000 ML IV SCH ×4 (02:47→23:23)
[2021-01-23] MEDS: Ibuprofen 200 MG Tab PO PRN (03:03)
[2021-01-23] MEDS: Pantoprazole 40 MG Tab.CR PO SCH (06:31)
[2021-01-23] MEDS ORDERED: Insulin Lispro 100 Unit/ML 3 ML KwikPen SUBCUT ONE (08:30)
[2021-01-23] MEDS: Insulin Lispro 100 Unit/ML 3 ML KwikPen SUBCUT SCH ×3 (08:33→17:58)
[2021-01-23] MEDS: metFORMIN 1,000 MG Tab PO SCH ×2 (08:44→17:59)
[2021-01-23] MEDS: Aspirin 81 MG Tab.Chew PO SCH (08:44)
[2021-01-23] MEDS: atorvaSTATin 10 MG Tab PO SCH (08:44)
[2021-01-23] MEDS: Allopurinol 100 MG Tab PO SCH (08:45)
[2021-01-23] MEDS: Carvedilol 25 MG Tab PO SCH ×2 (08:45→21:34)
[2021-01-23] MEDS: Lisinopril 20 MG Tab PO SCH (08:47)
[2021-01-23] MEDS: amLODIPine 5 MG Tab PO SCH (08:48)
[2021-01-23] MEDS: Pregabalin 75 MG Cap PO SCH ×2 (08:52→21:38)
--- NOTE | 2021-01-23 10:42 | PCM.PN ---
- General Info Date of Service: 01/23/21 Subjective Update: Don's mental status is back to baseline today, able to answer questions appropriately, states he was feeling fine on Saturday and woke up here last night. He states he does take Toujeo 120 units at bedtime and Victoza in the morning, states fasting sugar is about 130s at home. No complaint of pain currently. No trouble urinating. - Patient Data Vitals - Most Recent: Last Vital Signs Temp 98.2 F 01/23/21 08:00 Pulse 73 01/23/21 08:45 Resp 20 01/23/21 08:00 BP 130/64 01/23/21 08:48 Pulse Ox 96 01/23/21 08:00 Weight - Most Recent: 222 lb 4.8 oz Lab Results Last 24 Hours: Laboratory Results - last 24 hr 01/22/21 01/22/21 01/22/21 Range/Units 14:19 14:20 14:20 WBC 13.8 H (3.2-10.1) x10-3/uL RBC 4.61 (3.90-5.90) x10(6)uL Hgb 12.6 L (12.9-17.7) g/dL Hct 39.5 (38.3-50.1) % MCV 85.7 (80.8-98.7) fL MCH 27.4 (27.0-33.3) pg MCHC 31.9 (28.7-35.3) g/dL RDW 14.1 (12.4-15.0) % Plt Count 135 (117-477) x10(3)uL MPV 10.1 (6.7-11.0) fL Neut % (Auto) (40.3-71.8) % Lymph % (Auto) (15.8-45.3) % [place] % (Auto) (5.5-15.2) % Eos % (Auto) (0.1-6.8) % Baso % (Auto) (0.3-3.8) % Neut # (Auto) (1.7-6.9) x10-3/uL Lymph # (Auto) (0.5-4.5) x10-3/uL [place] # (Auto) (0.0-1.2) x10-3/uL Eos # (Auto) (0.0-0.6) x10-3/uL Baso # (Auto) (0.0-0.3) x10-3/uL Add Manual Diff Yes Neutrophils % (Manual) 91 H (46-82) % Lymphocytes % (Manual) 5 L (13-37) % Monocytes % (Manual) 4 (4-12) % Sodium 145 (135-145) mmol/L Potassium 4.0 (3.5-5.3) mmol/L Chloride 105 (100-110) mmol/L Carbon Dioxide 26 (21-32) mmol/L BUN 28 H (7-18) mg/dL Creatinine 1.6 H (0.70-1.30) mg/dL Est Cr Clr Drug Dosing TNP Estimated GFR (MDRD) 42 L (>60) BUN/Creatinine Ratio 17.5 (9-20) Glucose 156 H (80-116) mg/dL POC Glucose (80-116) mg/dL Lactic Acid (0.4-2.0) mmol/L Calcium 9.7 (8.6-10.2) mg/dL Total Bilirubin 0.7 (0.1-1.3) mg/dL AST 20 D (5-25) IU/L ALT 35 D (12-36) U/L Alkaline Phosphatase 77 (56-112) IU/L Total Protein 7.4 (6.0-8.0) g/dL Albumin 3.5 (3.2-4.6) g/dL Globulin 3.9 g/dL Albumin/Globulin Ratio 0.9 Urine Color Yellow (YELLOW) Urine Appearance Slightly cloudy (CLEAR) Urine pH 6.0 (5.0-6.5) Ur Specific H[place] 1.010 (1.010-1.025) Urine Protein Negative (NEGATIVE) mg/dL Urine Glucose (UA) Normal (NORMAL) mg/dL Urine Ketones Negative (NEGATIVE) mg/dL Urine Occult Blood Trace (NEGATIVE) Urine Nitrite Negative (NEGATIVE) Urine Bilirubin Negative (NEGATIVE) Urine Urobilinogen Normal (NEGATIVE) mg/dL Ur Leukocyte Esterase Moderate H (NEGATIVE) Urine RBC 0-5 (0-5) Urine WBC 10-20 H (0-5) Ur Squamous Epith Cells Few H (NS,R,O) Urine Bacteria Many H (NS) 0701/22/21 01/22/21 Range/Units 14:20 17:50 18:02 WBC (3.2-10.1) x10-3/uL RBC (3.90-5.90) x10(6)uL Hgb (12.9-17.7) g/dL Hct (38.3-50.1) % MCV (80.8-98.7) fL MCH (27.0-33.3) pg MCHC (28.7-35.3) g/dL RDW (12.4-15.0) % Plt Count (117-477) x10(3)uL MPV (6.7-11.0) fL Neut % (Auto) (40.3-71.8) % Lymph % (Auto) (15.8-45.3) % [place] % (Auto) (5.5-15.2) % Eos % (Auto) (0.1-6.8) % Baso % (Auto) (0.3-3.8) % Neut # (Auto) (1.7-6.9) x10-3/uL Lymph # (Auto) (0.5-4.5) x10-3/uL [place] # (Auto) (0.0-1.2) x10-3/uL Eos # (Auto) (0.0-0.6) x10-3/uL Baso # (Auto) (0.0-0.3) x10-3/uL Add Manual Diff Neutrophils % (Manual) (46-82) % Lymphocytes % (Manual) (13-37) % Monocytes % (Manual) (4-12) % Sodium (135-145) mmol/L Potassium (3.5-5.3) mmol/L Chloride (100-110) mmol/L Carbon Dioxide (21-32) mmol/L BUN (7-18) mg/dL Creatinine (0.70-1.30) mg/dL Est Cr Clr Drug Dosing Estimated GFR (MDRD) (>60) BUN/Creatinine Ratio (9-20) Glucose (80-116) mg/dL POC Glucose 136 H (80-116) mg/dL Lactic Acid 2.4 H* 1.7 (0.4-2.0) mmol/L Calcium (8.6-10.2) mg/dL Total Bilirubin (0.1-1.3) mg/dL AST (5-25) IU/L ALT (12-36) U/L Alkaline Phosphatase (56-112) IU/L Total Protein (6.0-8.0) g/dL Albumin (3.2-4.6) g/dL Globulin g/dL Albumin/Globulin Ratio Urine Color (YELLOW) Urine Appearance (CLEAR) Urine pH (5.0-6.5) Ur Specific H[place] (1.010-1.025) Urine Protein (NEGATIVE) mg/dL Urine Glucose (UA) (NORMAL) mg/dL Urine Ketones (NEGATIVE) mg/dL Urine Occult Blood (NEGATIVE) Urine Nitrite (NEGATIVE) Urine Bilirubin (NEGATIVE) Urine Urobilinogen (NEGATIVE) mg/dL Ur Leukocyte Esterase (NEGATIVE) Urine RBC (0-5) Urine WBC (0-5) Ur Squamous Epith Cells (NS,R,O) Urine Bacteria (NS) 01/23/21 01/23/21 Range/Units 06:20 06:20 WBC 9.9 (3.2-10.1) x10-3/uL RBC 3.91 (3.90-5.90) x10(6)uL Hgb 11.0 L (12.9-17.7) g/dL Hct 33.5 L (38.3-50.1) % MCV 85.6 (80.8-98.7) fL MCH 28.2 (27.0-33.3) pg MCHC 32.9 (28.7-35.3) g/dL RDW 14.5 (12.4-15.0) % Plt Count 117 (117-477) x10(3)uL MPV 10.5 (6.7-11.0) fL Neut % (Auto) 87.1 H (40.3-71.8) % Lymph % (Auto) 7.5 L (15.8-45.3) % [place] % (Auto) 5.1 L (5.5-15.2) % Eos % (Auto) 0.0 L (0.1-6.8) % Baso % (Auto) 0.3 (0.3-3.8) % Neut # (Auto) 8.6 H (1.7-6.9) x10-3/uL Lymph # (Auto) 0.7 (0.5-4.5) x10-3/uL [place] # (Auto) 0.5 (0.0-1.2) x10-3/uL Eos # (Auto) 0.0 (0.0-0.6) x10-3/uL Baso # (Auto) 0.0 (0.0-0.3) x10-3/uL Add Manual Diff Neutrophils % (Manual) (46-82) % Lymphocytes % (Manual) (13-37) % Monocytes % (Manual) (4-12) % Sodium 144 (135-145) mmol/L Potassium 3.3 L (3.5-5.3) mmol/L Chloride 107 (100-110) mmol/L Carbon Dioxide 26 (21-32) mmol/L BUN 34 H (7-18) mg/dL Creatinine 1.7 H (0.70-1.30) mg/dL Est Cr Clr Drug Dosing 34.59 Estimated GFR (MDRD) 39 L (>60) BUN/Creatinine Ratio 20.0 (9-20) Glucose 156 H (80-116) mg/dL POC Glucose (80-116) mg/dL Lactic Acid (0.4-2.0) mmol/L Calcium 8.6 (8.6-10.2) mg/dL Total Bilirubin (0.1-1.3) mg/dL AST (5-25) IU/L ALT (12-36) U/L Alkaline Phosphatase (56-112) IU/L Total Protein (6.0-8.0) g/dL Albumin (3.2-4.6) g/dL Globulin g/dL Albumin/Globulin Ratio Urine Color (YELLOW) Urine Appearance (CLEAR) Urine pH (5.0-6.5) Ur Specific Hinkle (1.010-1.025) Urine Protein (NEGATIVE) mg/dL Urine Glucose (UA) (NORMAL) mg/dL Urine Ketones (NEGATIVE) mg/dL Urine Occult Blood (NEGATIVE) Urine Nitrite (NEGATIVE) Urine Bilirubin (NEGATIVE) Urine Urobilinogen (NEGATIVE) mg/dL Ur Leukocyte Esterase (NEGATIVE) Urine RBC (0-5) Urine WBC (0-5) Ur Squamous Epith Cells (NS,R,O) Urine Bacteria (NS) [place]io Results Last 24 Hours: Microbiology 07/18/21 14:19 Urine Culture - Preliminary Urine, Clean Catch Gram Negative Rods Med Orders - Current: Current Medications Acetaminophen (Acetaminophen 500 Mg Tab) 500 mg PO Q4H PRN PRN Reason: Pain (Mild 1-3)/fever Last Admin: 01/22/21 18:10 Dose: 500 mg Documented by: Allopurinol (Allopurinol 100 Mg Tab) 100 mg PO DAILY [facility] Last Admin: 01/23/21 08:45 Dose: 100 mg Documented by: Amlodipine Besylate (Amlodipine 5 Mg Tab) 5 mg PO DAILY [facility] Last Admin: 01/23/21 08:48 Dose: 5 mg Documented by: Aspirin (Aspirin 81 Mg Tab.Chew) 81 mg PO DAILY [facility] Last Admin: 01/23/21 08:44 Dose: 81 mg Documented by: Atorvastatin Calcium (Atorvastatin 10 Mg Tab) 10 mg PO DAILY [facility] Last Admin: 01/23/21 08:44 Dose: 10 mg Documented by: Carvedilol (Carvedilol 25 Mg Tab) 50 mg PO BID [facility] Last Admin: 01/23/21 08:45 Dose: 50 mg Documented by: Ceftriaxone Sodium (Ceftriaxone 1 Gm Vial) 1 gm IVPUSH Q24H [facility] Dextrose/Water (50% Dextrose In Water 50 Ml Syringe) 50 ml IVPUSH ASDIRECTED PRN PRN Reason: Hypoglycemia Enoxaparin Sodium (Enoxaparin 30 Mg/0.3 Ml Syringe) 30 mg SUBCUT Q24H [facility] Last Admin: 01/22/21 18:10 Dose: 30 mg Documented by: Glucagon (Glucagon,Human Recombinant 1 Mg Vial) 1 mg IM ASDIRECTED PRN PRN Reason: Hypoglycemia Sodium Chloride (Normal Saline) 1,000 mls @ 100 mls/hr IV ASDIRECTED [facility] Last Admin: 01/23/21 02:47 Dose: 100 mls/hr Documented by: Ibuprofen (Ibuprofen 200 Mg Tab) 200 mg PO Q4H PRN PRN Reason: Fever Last Admin: 01/23/21 03:03 Dose: 200 mg Documented by: Insulin Human Lispro (Insulin Lispro 100 Unit/Ml 3 Ml Kwikpen) 0 unit SUBCUT TIDMEALS [facility]; Protocol Last Admin: 01/23/21 08:33 Dose: 1 unit Documented by: Lisinopril (Lisinopril 20 Mg Tab) 20 mg PO DAILY [facility] Last Admin: 01/23/21 08:47 Dose: 20 mg Documented by: Metformin HCl (Metformin 1,000 Mg Tab) 1,000 mg PO BIDMEALS [facility] Last Admin: 01/23/21 08:44 Dose: 1,000 mg Documented by: Pantoprazole Sodium (Pantoprazole 40 Mg Tab.Cr) 40 mg PO ACBREAKFAST [facility] Last Admin: 01/23/21 06:31 Dose: 40 mg Documented by: Pregabalin (Pregabalin 75 Mg Cap) 150 mg PO BID [facility] Last Admin: 01/23/21 08:52 Dose: 150 mg Documented by: Discontinued Medications Acetaminophen (Acetaminophen 325 Mg Tab) 650 mg PO Q4H PRN PRN Reason: Pain (Mild 1-3)/fever Ceftriaxone Sodium 1 gm/ (Sodium Chloride) 50 mls @ 200 mls/hr IV ONETIME ONE Stop: 01/22/21 15:15 Last Admin: 01/22/21 15:23 Dose: 200 mls/hr Documented by: Sodium Chloride (Normal Saline) 1,000 mls @ 999 mls/hr IV .BOLUS ONE Stop: 01/22/21 16:22 Last Admin: 01/22/21 15:23 Dose: 999 mls/hr Documented by: Ibuprofen (Ibuprofen 400 Mg Tab) 400 mg PO Q6H PRN PRN Reason: Fever Insulin Human Lispro (Insulin Lispro 100 Unit/Ml 3 Ml Kwikpen) 0 unit SUBCUT TID PRN; Protocol PRN Reason: Hyperglycemia - Exam General: Alert, Oriented, Cooperative, No Acute Distress Lungs: Clear to Auscultation, Normal Respiratory Effort Cardiovascular: Regular Rate, Regular Rhythm GI/Abdominal Exam: Normal Bowel Sounds, Soft, Non-Tender, No Distention Extremities: Pedal Edema (trace BLE) Peripheral Pulses: 2+: Radial (L), Radial (R) - Patient Data Lab Results Last 24 hrs: Laboratory Results - last 24 hr 01/22/21 01/22/21 01/22/21 Range/Units 14:19 14:20 14:20 WBC 13.8 H (3.2-10.1) x10-3/uL RBC 4.61 (3.90-5.90) x10(6)uL Hgb 12.6 L (12.9-17.7) g/dL Hct 39.5 (38.3-50.1) % MCV 85.7 (80.8-98.7) fL MCH 27.4 (27.0-33.3) pg MCHC 31.9 (28.7-35.3) g/dL RDW 14.1 (12.4-15.0) % Plt Count 135 (117-477) x10(3)uL MPV 10.1 (6.7-11.0) fL Neut % (Auto) (40.3-71.8) % Lymph % (Auto) (15.8-45.3) % [place] % (Auto) (5.5-15.2) % Eos % (Auto) (0.1-6.8) % Baso % (Auto) (0.3-3.8) % Neut # (Auto) (1.7-6.9) x10-3/uL Lymph # (Auto) (0.5-4.5) x10-3/uL [place] # (Auto) (0.0-1.2) x10-3/uL Eos # (Auto) (0.0-0.6) x10-3/uL Baso # (Auto) (0.0-0.3) x10-3/uL Add Manual Diff Yes Neutrophils % (Manual) 91 H (46-82) % Lymphocytes % (Manual) 5 L (13-37) % Monocytes % (Manual) 4 (4-12) % Sodium 145 (135-145) mmol/L Potassium 4.0 (3.5-5.3) mmol/L Chloride 105 (100-110) mmol/L Carbon Dioxide 26 (21-32) mmol/L BUN 28 H (7-18) mg/dL Creatinine 1.6 H (0.70-1.30) mg/dL Est Cr Clr Drug Dosing TNP Estimated GFR (MDRD) 42 L (>60) BUN/Creatinine Ratio 17.5 (9-20) Glucose 156 H (80-116) mg/dL POC Glucose (80-116) mg/dL Lactic Acid (0.4-2.0) mmol/L Calcium 9.7 (8.6-10.2) mg/dL Total Bilirubin 0.7 (0.1-1.3) mg/dL AST 20 D (5-25) IU/L ALT 35 D (12-36) U/L Alkaline Phosphatase 77 (56-112) IU/L Total Protein 7.4 (6.0-8.0) g/dL Albumin 3.5 (3.2-4.6) g/dL Globulin 3.9 g/dL Albumin/Globulin Ratio 0.9 Urine Color Yellow (YELLOW) Urine Appearance Slightly cloudy (CLEAR) Urine pH 6.0 (5.0-6.5) Ur Specific [place] 1.010 (1.010-1.025) Urine Protein Negative (NEGATIVE) mg/dL Urine Glucose (UA) Normal (NORMAL) mg/dL Urine Ketones Negative (NEGATIVE) mg/dL Urine Occult Blood Trace (NEGATIVE) Urine Nitrite Negative (NEGATIVE) Urine Bilirubin Negative (NEGATIVE) Urine Urobilinogen Normal (NEGATIVE) mg/dL Ur Leukocyte Esterase Moderate H (NEGATIVE) Urine RBC 0-5 (0-5) Urine WBC 10-20 H (0-5) Ur Squamous Epith Cells Few H (NS,R,O) Urine Bacteria Many H (NS) 01/22/21 01/22/21 01/22/21 Range/Units 14:20 17:50 18:02 WBC (3.2-10.1) x10-3/uL RBC (3.90-5.90) x10(6)uL Hgb (12.9-17.7) g/dL Hct (38.3-50.1) % MCV (80.8-98.7) fL MCH (27.0-33.3) pg MCHC (28.7-35.3) g/dL RDW (12.4-15.0) % Plt Count (117-477) x10(3)uL MPV (6.7-11.0) fL Neut % (Auto) (40.3-71.8) % Lymph % (Auto) (15.8-45.3) % [place] % (Auto) (5.5-15.2) % Eos % (Auto) (0.1-6.8) % Baso % (Auto) (0.3-3.8) % Neut # (Auto) (1.7-6.9) x10-3/uL Lymph # (Auto) (0.5-4.5) x10-3/uL [place] # (Auto) (0.0-1.2) x10-3/uL Eos # (Auto) (0.0-0.6) x10-3/uL Baso # (Auto) (0.0-0.3) x10-3/uL Add Manual Diff Neutrophils % (Manual) (46-82) % Lymphocytes % (Manual) (13-37) % Monocytes % (Manual) (4-12) % Sodium (135-145) mmol/L Potassium (3.5-5.3) mmol/L Chloride (100-110) mmol/L Carbon Dioxide (21-32) mmol/L BUN (7-18) mg/dL Creatinine (0.70-1.30) mg/dL Est Cr Clr Drug Dosing Estimated GFR (MDRD) (>60) BUN/Creatinine Ratio (9-20) Glucose (80-116) mg/dL POC Glucose 136 H (80-116) mg/dL Lactic Acid 2.4 H* 1.7 (0.4-2.0) mmol/L Calcium (8.6-10.2) mg/dL Total Bilirubin (0.1-1.3) mg/dL AST (5-25) IU/L ALT (12-36) U/L Alkaline Phosphatase (56-112) IU/L Total Protein (6.0-8.0) g/dL Albumin (3.2-4.6) g/dL Globulin g/dL Albumin/Globulin Ratio Urine Color (YELLOW) Urine Appearance (CLEAR) Urine pH (5.0-6.5) Ur Specific [place] (1.010-1.025) Urine Protein (NEGATIVE) mg/dL Urine Glucose (UA) (NORMAL) mg/dL Urine Ketones (NEGATIVE) mg/dL Urine Occult Blood (NEGATIVE) Urine Nitrite (NEGATIVE) Urine Bilirubin (NEGATIVE) Urine Urobilinogen (NEGATIVE) mg/dL Ur Leukocyte Esterase (NEGATIVE) Urine RBC (0-5) Urine WBC (0-5) Ur Squamous Epith Cells (NS,R,O) Urine Bacteria (NS) 01/23/21 01/23/21 Range/Units 06:20 06:20 WBC 9.9 (3.2-10.1) x10-3/uL RBC 3.91 (3.90-5.90) x10(6)uL Hgb 11.0 L (12.9-17.7) g/dL Hct 33.5 L (38.3-50.1) % MCV 85.6 (80.8-98.7) fL MCH 28.2 (27.0-33.3) pg MCHC 32.9 (28.7-35.3) g/dL RDW 14.5 (12.4-15.0) % Plt Count 117 (117-477) x10(3)uL MPV 10.5 (6.7-11.0) fL Neut % (Auto) 87.1 H (40.3-71.8) % Lymph % (Auto) 7.5 L (15.8-45.3) % [place] % (Auto) 5.1 L (5.5-15.2) % Eos % (Auto) 0.0 L (0.1-6.8) % Baso % (Auto) 0.3 (0.3-3.8) % Neut # (Auto) 8.6 H (1.7-6.9) x10-3/uL Lymph # (Auto) 0.7 (0.5-4.5) x10-3/uL [place] # (Auto) 0.5 (0.0-1.2) x10-3/uL Eos # (Auto) 0.0 (0.0-0.6) x10-3/uL Baso # (Auto) 0.0 (0.0-0.3) x10-3/uL Add Manual Diff Neutrophils % (Manual) (46-82) % Lymphocytes % (Manual) (13-37) % Monocytes % (Manual) (4-12) % Sodium 144 (135-145) mmol/L Potassium 3.3 L (3.5-5.3) mmol/L Chloride 107 (100-110) mmol/L Carbon Dioxide 26 (21-32) mmol/L BUN 34 H (7-18) mg/dL Creatinine 1.7 H (0.70-1.30) mg/dL Est Cr Clr Drug Dosing 34.59 Estimated GFR (MDRD) 39 L (>60) BUN/Creatinine Ratio 20.0 (9-20) Glucose 156 H (80-116) mg/dL POC Glucose (80-116) mg/dL Lactic Acid (0.4-2.0) mmol/L Calcium 8.6 (8.6-10.2) mg/dL Total Bilirubin (0.1-1.3) mg/dL AST (5-25) IU/L ALT (12-36) U/L Alkaline Phosphatase (56-112) IU/L Total Protein (6.0-8.0) g/dL Albumin (3.2-4.6) g/dL Globulin g/dL Albumin/Globulin Ratio Urine Color (YELLOW) Urine Appearance (CLEAR) Urine pH (5.0-6.5) Ur Specific Hinkle (1.010-1.025) Urine Protein (NEGATIVE) mg/dL Urine Glucose (UA) (NORMAL) mg/dL Urine Ketones (NEGATIVE) mg/dL Urine Occult Blood (NEGATIVE) Urine Nitrite (NEGATIVE) Urine Bilirubin (NEGATIVE) Urine Urobilinogen (NEGATIVE) mg/dL Ur Leukocyte Esterase (NEGATIVE) Urine RBC (0-5) Urine WBC (0-5) Ur Squamous Epith Cells (NS,R,O) Urine Bacteria (NS) Result Diagrams: 01/23/21 06:20 01/23/21 06:20 [place] Results Last 24 hrs: Microbiology 01/22/21 14:19 Urine Culture - Preliminary Urine, Clean Catch Gram Negative Rods Sepsis Event Note - Evaluation Sepsis Screening Result: No Definite Risk - Focused Exam Vital Signs: Vital Signs Temp Temp Pulse Pulse Resp BP BP 01/23/21 08:48 130/64 01/23/21 08:47 130/60 01/23/21 08:45 73 130/64 01/23/21 08:00 98.2 F 66 20 130/64 01/23/21 04:03 99.4 F 01/23/21 04:00 99.4 F 76 16 140/59 L 01/23/21 00:00 98.5 F 57 L 16 105/47 L Pulse Ox 01/23/21 08:48 01/23/21 08:47 01/23/21 08:45 01/23/21 08:00 96 01/23/21 04:03 01/23/21 04:00 95 01/23/21 00:00 94 L - Problem List & Annotations (1) Sepsis SNOMED Code(s): 87724187 Code(s): A41.9 - SEPSIS, UNSPECIFIED ORGANISM Status: Resolved Current Visit: Yes Qualifiers: Sepsis type: sepsis due to unspecified organism Severe sepsis shock status: without septic shock Annotation/Comment:: Early sepsis, Lactic acid 2.4. WBC 13.8 (2) UTI (urinary tract infection) SNOMED Code(s): 86326582 Code(s): N39.0 - URINARY TRACT INFECTION, SITE NOT SPECIFIED Status: Acute Current Visit: Yes Qualifiers: Urinary tract infection type: site unspecified Hematuria presence: without hematuria Qualified Code(s): N39.0 - Urinary tract infection, site not specified (3) Altered mental status SNOMED Code(s): 308569794 Code(s): R41.82 - ALTERED MENTAL STATUS, UNSPECIFIED Status: Resolved Current Visit: No (4) Dehydration SNOMED Code(s): 05155594 Code(s): E86.0 - DEHYDRATION Status: Acute Current Visit: No Annotation/Comment:: improving (5) Renal insufficiency SNOMED Code(s): 206880075, 342525296 Code(s): N28.9 - DISORDER OF KIDNEY AND URETER, UNSPECIFIED Status: Acute Current Visit: No Annotation/Comment:: Baseline Cr 1.3 05/2020 Cr improved to 1.7 (6) Diabetes mellitus SNOMED Code(s): 52805656 Code(s): E11.9 - TYPE 2 DIABETES MELLITUS WITHOUT COMPLICATIONS Status: Chronic Current Visit: No (7) Adenocarcinoma of colon SNOMED Code(s): 179889662, 163812502 Code(s): C18.9 - MALIGNANT NEOPLASM OF COLON, UNSPECIFIED Status: Chronic Current Visit: Yes (8) S/P colon resection SNOMED Code(s): 313881052, 12571973, 03829843, 574689453 Code(s): Z90.49 - ACQUIRED ABSENCE OF OTHER SPECIFIED PARTS OF DIGESTIVE TRACT Status: Chronic Current Visit: Yes Onset Date: ~10/15/16 (9) Hypokalemia SNOMED Code(s): 54081657 Code(s): E87.6 - HYPOKALEMIA Status: Acute Current Visit: Yes - Problem List Review Problem List Initiated/Reviewed/Updated: Yes - My Orders Last 24 Hours: My Active Orders 01/22/21 Dinner Consistent Carbohydrate Diet [DIET] 01/22/21 17:09 Patient Status [ADT] Routine Blood Glucose Check, Bedside [RC] WITHMEALSANDBED Oxygen Therapy [RC] PRN Up With Assistance [RC] ASDIRECTED Up to Chair [RC] ASDIRECTED VTE/DVT Education [RC] Per Unit Routine Vital Signs [RC] Q4H Resuscitation Status Routine 01/22/21 17:10 Antiembolic Hose [OM.PC] Per Unit Routine 01/22/21 17:34 Dextrose 50% in Water 50 ml IVPUSH ASDIRECTED PRN Glucagon,Human Recombinant [GlucaGen] 1 mg IM ASDIRECTED PRN 01/22/21 17:45 Sodium Chloride 0.9% [Normal Saline] 1,000 ml IV ASDIRECTED 01/22/21 17:54 Oxygen Therapy Adult [Oxygen Therapy] [RC] BEDTIME 01/22/21 17:56 Acetaminophen [Tylenol Extra Strength] 500 mg PO Q4H PRN 01/22/21 17:57 Ibuprofen [Motrin] 200 mg PO Q4H PRN 01/22/21 18:00 Enoxaparin [Lovenox] 30 mg SUBCUT Q24H metFORMIN [Glucophage] 1,000 mg PO BIDMEALS 01/22/21 21:00 Pregabalin [Lyrica] 150 mg PO BID carvediloL [Coreg] 50 mg PO BID 01/23/21 07:30 Pantoprazole [ProTONIX] 40 mg PO ACBREAKFAST 01/23/21 08:00 Insulin Lispro [HumaLOG] 0 unit SUBCUT TIDMEALS 01/23/21 09:00 Aspirin 81 mg PO DAILY allopurinoL [Zyloprim] 100 mg PO DAILY amLODIPine [Norvasc] 5 mg PO DAILY atorvaSTATin [Lipitor] 10 mg PO DAILY lisinopriL [Prinivil] 20 mg PO DAILY 01/23/21 15:30 cefTRIAXone [Rocephin] 1 gm IVPUSH Q24H - Plan Plan:: 1. Early sepsis/UTI/altered mental status: Rocephin 1 gram IV q24h day 2, Lactic acid 2.4, repeat 1.7. CBC 9.9. Tylenol/Ibuprofen alternating as needed fever. IVF 100 ml/hr. UC Gram negative rods, adjust antibiotics once REFUGIO received. 2. Hypokalemia: KCL 20 mEQ bid. Repeat BMP tomorrow. 3. Dehydration/KENNEDY: NS 100 ml/hr with his history of CHF. 4. DM: glucose checks qid&hs, hold Toujeo & Victoza until family brings in, Humalog sliding scale and Metformin bid. Fasting sugar this am was 136 so continue to hold his Toujeo until eating better. 5. Sleep apnea: his did not bring his CPAP machine with them, will do overnight oxygen as substitute. 6. Discharge planning: anticipate 48 hours of IV antibiotics, IVF, switch to orals once afebrile 24 hours.
[2021-01-23] MEDS: Potassium Chloride 20 MEQ Tab.ER PO SCH ×2 (11:04→21:35)
[2021-01-23] MEDS: cefTRIAXone 1 GM Vial IVPUSH SCH (16:48)
[2021-01-23] MEDS: Acetaminophen 500 MG Tab PO PRN (16:52)
[2021-01-23] MEDS: Enoxaparin 30 MG/0.3 ML Syringe SUBCUT SCH (18:01)
[2021-01-24] MEDS: Pantoprazole 40 MG Tab.CR PO SCH (06:30)
[2021-01-24] MEDS: metFORMIN 1,000 MG Tab PO SCH ×2 (08:38→17:44)
[2021-01-24] MEDS: Insulin Lispro 100 Unit/ML 3 ML KwikPen SUBCUT SCH ×3 (08:39→17:41)
[2021-01-24] MEDS: Lisinopril 20 MG Tab PO SCH (08:41)
[2021-01-24] MEDS: Aspirin 81 MG Tab.Chew PO SCH (08:42)
[2021-01-24] MEDS: Carvedilol 25 MG Tab PO SCH ×2 (08:42→20:33)
[2021-01-24] MEDS: Potassium Chloride 20 MEQ Tab.ER PO SCH ×2 (08:42→20:34)
[2021-01-24] MEDS: amLODIPine 5 MG Tab PO SCH (08:43)
[2021-01-24] MEDS: atorvaSTATin 10 MG Tab PO SCH (08:43)
[2021-01-24] MEDS: Pregabalin 75 MG Cap PO SCH ×2 (08:43→20:36)
[2021-01-24] MEDS: Allopurinol 100 MG Tab PO SCH (08:44)
--- NOTE | 2021-01-24 10:17 | PCM.PN ---
- General Info Date of Service: 01/24/21 Subjective Update: Ikre is up in the chair eating breakfast, denies any pain or shortness of breath. He feels more clear headed today. States he has diarrhea once in awhile at home but did not notice increase when put on Victoza or Metformin. Has some swelling in legs, little red area on right isbell. Temp of 101.6F last evening at 1600. Afebrile this morning. Functional Status: Reports: Pain Controlled, Tolerating Diet, Ambulating, Urinating. Denies: New Symptoms - Patient Data Vitals - Most Recent: Last Vital Signs Temp 99.6 F 01/24/21 07:20 Pulse 55 L 01/24/21 08:42 Resp 20 01/24/21 07:20 BP 136/65 01/24/21 08:43 Pulse Ox 95 01/24/21 07:20 Weight - Most Recent: 222 lb 4.8 oz I&O - Last 24 Hours: Intake & Output 01/23/21 01/24/21 01/24/21 22:59 06:59 14:59 Intake Total 719 803 355 Output Total 1350 Balance 719 -547 355 Lab Results Last 24 Hours: Laboratory Results - last 24 hr 01/23/21 01/23/21 01/24/21 Range/Units 11:45 17:30 06:15 Sodium 141 (135-145) mmol/L Potassium 3.7 (3.5-5.3) mmol/L Chloride 105 (100-110) mmol/L Carbon Dioxide 25 (21-32) mmol/L BUN 29 H (7-18) mg/dL Creatinine 1.5 H (0.70-1.30) mg/dL Est Cr Clr Drug Dosing 39.20 mL/min Estimated GFR (MDRD) 45 L (>60) BUN/Creatinine Ratio 19.3 (9-20) Glucose 231 H (80-116) mg/dL POC Glucose 179 H 226 H (80-116) mg/dL Calcium 8.0 L (8.6-10.2) mg/dL [place] Results Last 24 Hours: Microbiology 01/22/21 14:19 Urine Culture - Final Urine, Clean Catch Enterobacter Cloacae Med Orders - Current: Current Medications Acetaminophen (Acetaminophen 500 Mg Tab) 500 mg PO Q4H PRN PRN Reason: Pain (Mild 1-3)/fever Last Admin: 01/23/21 16:52 Dose: 500 mg Documented by: Allopurinol (Allopurinol 100 Mg Tab) 100 mg PO DAILY [facility] Last Admin: 01/24/21 08:44 Dose: 100 mg Documented by: Amlodipine Besylate (Amlodipine 5 Mg Tab) 5 mg PO DAILY [facility] Last Admin: 01/24/21 08:43 Dose: 5 mg Documented by: Aspirin (Aspirin 81 Mg Tab.Chew) 81 mg PO DAILY [facility] Last Admin: 01/24/21 08:42 Dose: 81 mg Documented by: Atorvastatin Calcium (Atorvastatin 10 Mg Tab) 10 mg PO DAILY [facility] Last Admin: 01/24/21 08:43 Dose: 10 mg Documented by: Carvedilol (Carvedilol 25 Mg Tab) 50 mg PO BID [facility] Last Admin: 01/24/21 08:42 Dose: 50 mg Documented by: Ceftriaxone Sodium (Ceftriaxone 1 Gm Vial) 1 gm IVPUSH Q24H [facility] Last Admin: 01/23/21 16:48 Dose: 1 gm Documented by: Dextrose/Water (50% Dextrose In Water 50 Ml Syringe) 50 ml IVPUSH ASDIRECTED PRN PRN Reason: Hypoglycemia Enoxaparin Sodium (Enoxaparin 40 Mg/0.4 Ml Syringe) 40 mg SUBCUT Q24H [facility] Glucagon (Glucagon,Human Recombinant 1 Mg Vial) 1 mg IM ASDIRECTED PRN PRN Reason: Hypoglycemia Ibuprofen (Ibuprofen 200 Mg Tab) 200 mg PO Q4H PRN PRN Reason: Fever Last Admin: 01/23/21 03:03 Dose: 200 mg Documented by: Insulin Human Lispro (Insulin Lispro 100 Unit/Ml 3 Ml Kwikpen) 0 unit SUBCUT TIDMEALS [facility]; Protocol Last Admin: 01/24/21 08:39 Dose: 2 unit Documented by: Lisinopril (Lisinopril 20 Mg Tab) 20 mg PO DAILY [facility] Last Admin: 01/24/21 08:41 Dose: 20 mg Documented by: Metformin HCl (Metformin 1,000 Mg Tab) 1,000 mg PO BIDMEALS [facility] Last Admin: 01/24/21 08:38 Dose: 1,000 mg Documented by: Pantoprazole Sodium (Pantoprazole 40 Mg Tab.Cr) 40 mg PO ACBREAKFAST [facility] Last Admin: 01/24/21 06:30 Dose: 40 mg Documented by: Potassium Chloride (Potassium Chloride 20 Meq Tab.Er) 20 meq PO BID [facility] Last Admin: 01/24/21 08:42 Dose: 20 meq Documented by: Pregabalin (Pregabalin 75 Mg Cap) 150 mg PO BID [facility] Last Admin: 01/24/21 08:43 Dose: 150 mg Documented by: Discontinued Medications Acetaminophen (Acetaminophen 325 Mg Tab) 650 mg PO Q4H PRN PRN Reason: Pain (Mild 1-3)/fever Enoxaparin Sodium (Enoxaparin 30 Mg/0.3 Ml Syringe) 30 mg SUBCUT Q24H [facility] Last Admin: 01/23/21 18:01 Dose: 30 mg Documented by: Ceftriaxone Sodium 1 gm/ (Sodium Chloride) 50 mls @ 200 mls/hr IV ONETIME ONE Stop: 01/22/21 15:15 Last Admin: 01/22/21 15:23 Dose: 200 mls/hr Documented by: Sodium Chloride (Normal Saline) 1,000 mls @ 999 mls/hr IV .BOLUS ONE Stop: 01/22/21 16:22 Last Admin: 01/22/21 15:23 Dose: 999 mls/hr Documented by: Sodium Chloride (Normal Saline) 1,000 mls @ 100 mls/hr IV ASDIRECTED [facility] Last Admin: 01/23/21 23:23 Dose: 100 mls/hr Documented by: Ibuprofen (Ibuprofen 400 Mg Tab) 400 mg PO Q6H PRN PRN Reason: Fever Insulin Human Lispro (Insulin Lispro 100 Unit/Ml 3 Ml Kwikpen) 0 unit SUBCUT TID PRN; Protocol PRN Reason: Hyperglycemia - Exam General: Alert, Oriented, Cooperative, No Acute Distress Lungs: Clear to Auscultation, Normal Respiratory Effort Cardiovascular: Regular Rate, Regular Rhythm GI/Abdominal Exam: Normal Bowel Sounds, Soft, Non-Tender, No Distention (Male) Exam: Deferred Extremities: Pedal Edema (1+ BLE) Peripheral Pulses: 2+: Radial (L), Radial (R) - Patient Data Lab Results Last 24 hrs: Laboratory Results - last 24 hr 01/23/21 01/23/21 01/24/21 Range/Units 11:45 17:30 06:15 Sodium 141 (135-145) mmol/L Potassium 3.7 (3.5-5.3) mmol/L Chloride 105 (100-110) mmol/L Carbon Dioxide 25 (21-32) mmol/L BUN 29 H (7-18) mg/dL Creatinine 1.5 H (0.70-1.30) mg/dL Est Cr Clr Drug Dosing 39.20 mL/min Estimated GFR (MDRD) 45 L (>60) BUN/Creatinine Ratio 19.3 (9-20) Glucose 231 H (80-116) mg/dL POC Glucose 179 H 226 H (80-116) mg/dL Calcium 8.0 L (8.6-10.2) mg/dL Result Diagrams: 01/23/21 06:20 01/24/21 06:15 [place] Results Last 24 hrs: Microbiology 01/22/21 14:19 Urine Culture - Final Urine, Clean Catch Enterobacter Cloacae Sepsis Event Note - Evaluation Sepsis Screening Result: No Definite Risk - Focused Exam Vital Signs: Vital Signs Temp Temp Pulse Pulse Resp BP BP 01/24/21 08:43 136/65 01/24/21 08:42 55 L 136/65 01/24/21 08:41 136/65 01/24/21 07:20 99.6 F 55 L 20 136/65 01/24/21 06:23 97.1 F 64 16 137/56 L 01/24/21 03:30 99.2 F 77 16 01/23/21 23:27 99.8 F 65 20 BP Pulse Ox 01/24/21 08:43 01/24/21 08:42 01/24/21 08:41 01/24/21 07:20 95 01/24/21 06:23 96 01/24/21 03:30 145/65 H 94 L 01/23/21 23:27 158/75 H 99 - Problem List & Annotations (1) UTI (urinary tract infection) SNOMED Code(s): 99916137 Code(s): N39.0 - URINARY TRACT INFECTION, SITE NOT SPECIFIED Status: Acute Current Visit: Yes Qualifiers: Urinary tract infection type: site unspecified Hematuria presence: without hematuria Qualified Code(s): N39.0 - Urinary tract infection, site not specified (2) Renal insufficiency SNOMED Code(s): 617130176, 524856192 Code(s): N28.9 - DISORDER OF KIDNEY AND URETER, UNSPECIFIED Status: Acute Current Visit: No Annotation/Comment:: Baseline Cr 1.3 05/2020 Cr improved to 1.5 (3) Diabetes mellitus SNOMED Code(s): 90992062 Code(s): E11.9 - TYPE 2 DIABETES MELLITUS WITHOUT COMPLICATIONS Status: Chronic Current Visit: No (4) Adenocarcinoma of colon SNOMED Code(s): 616007052, 128835035 Code(s): C18.9 - MALIGNANT NEOPLASM OF COLON, UNSPECIFIED Status: Chronic Current Visit: Yes (5) S/P colon resection SNOMED Code(s): 659977839, 08072803, 46206815, 436540146 Code(s): Z90.49 - ACQUIRED ABSENCE OF OTHER SPECIFIED PARTS OF DIGESTIVE TRACT Status: Chronic Current Visit: Yes Onset Date: ~10/15/16 (6) Hypokalemia SNOMED Code(s): 86935704 Code(s): E87.6 - HYPOKALEMIA Status: Ruled-out Current Visit: Yes (7) Sepsis SNOMED Code(s): 56325191 Code(s): A41.9 - SEPSIS, UNSPECIFIED ORGANISM Status: Resolved Current Visit: Yes Qualifiers: Sepsis type: sepsis due to unspecified organism Severe sepsis shock status: without septic shock Annotation/Comment:: Early sepsis, Lactic acid 2.4. WBC 13.8 (8) Dehydration SNOMED Code(s): 85053340 Code(s): E86.0 - DEHYDRATION Status: Resolved Current Visit: No Annotation/Comment:: improving (9) Altered mental status SNOMED Code(s): 034876092 Code(s): R41.82 - ALTERED MENTAL STATUS, UNSPECIFIED Status: Resolved Current Visit: No - Problem List Review Problem List Initiated/Reviewed/Updated: Yes - My Orders Last 24 Hours: My Active Orders 01/23/21 10:45 Potassium Chloride [Klor-Con M20] 20 meq PO BID 01/23/21 15:30 cefTRIAXone [Rocephin] 1 gm IVPUSH Q24H 01/24/21 09:33 Convert IV to Peripheral Lock [Convert IV to Saline Lock] [OM.PC] Routine 01/24/21 18:00 Enoxaparin [Lovenox] 40 mg SUBCUT Q24H - Plan Plan:: 1. UTI: Rocephin 1 gram IV q24h day 3, UC grew enterobacter, sensitive to Rocephin, Doxycycline or Bactrim. Tylenol/Ibuprofen alternating as needed fever. saline lock. 2. Hypokalemia: resolved. 3. Dehydration/KENNEDY: Saline lock. 4. DM: glucose checks qid&hs, hold Toujeo & Victoza, Humalog sliding scale and Metformin bid. 5. Discharge planning: anticipate another day of IV antibiotics, then switch to orals once afebrile 24 hours.
[2021-01-24] MEDS: cefTRIAXone 1 GM Vial IVPUSH SCH (16:00)
[2021-01-24] MEDS ORDERED: Enoxaparin 40 MG/0.4 ML Syringe SUBCUT SCH (18:00)
[2021-01-24] MEDS ORDERED: Sodium Chloride 0.9% 10 ML Syringe FLUSH PRN (21:52)
[2021-01-25] MEDS: Pantoprazole 40 MG Tab.CR PO SCH (06:39)
[2021-01-25] MEDS: metFORMIN 1,000 MG Tab PO SCH (07:28)
[2021-01-25] MEDS: Insulin Lispro 100 Unit/ML 3 ML KwikPen SUBCUT SCH ×2 (07:30→12:56)
[2021-01-25] MEDS ORDERED: Cefdinir 300 MG Cap PO SCH (09:00)
[2021-01-25] MEDS: Carvedilol 25 MG Tab PO SCH (09:43)
[2021-01-25] MEDS: Potassium Chloride 20 MEQ Tab.ER PO SCH (09:43)
[2021-01-25] MEDS: Aspirin 81 MG Tab.Chew PO SCH (09:43)
[2021-01-25] MEDS: atorvaSTATin 10 MG Tab PO SCH (09:43)
[2021-01-25] MEDS: Allopurinol 100 MG Tab PO SCH (09:44)
[2021-01-25] MEDS: amLODIPine 5 MG Tab PO SCH (09:44)
[2021-01-25] MEDS: Lisinopril 20 MG Tab PO SCH (09:44)
[2021-01-25 09:46] VITALS: BP 159/74; PULSE 60
[2021-01-25] MEDS: Pregabalin 75 MG Cap PO SCH (09:52)
--- NOTE | 2021-01-25 13:25 | PCM.DCSUM1 ---
Discharge Summary - Hospital Course HPI Initial Comments: Iker was brought in by EMS today for altered mental status and fever. When his got up this morning, he was not making sense, fever, she is unsure if he took his morning medications. She thought he was in a diabetic coma. He was fine yesterday, did not complain of any pain, anything bothering him. He has had UTIs in the past. She states she hasn't noticed him going to the bathroom more, does wear incontinent brief at night but not incontinent of stool. She stated that he was shaking, chilled today. Temp in 104F in ER. History limited due to patient's mental status. History of adenocarcinoma of colon, history of colon resection in 2017, Diabetes, CHF, Hypertension, ventral hernia repair. Last labs at [place] 05/2020, Cr 1.3. His stated he had a couple of teeth pulled a few weeks ago, but no issues with that. Diagnosis: Stroke: No - Discharge Data Discharge Date: 01/25/21 Discharge Disposition: Home, Self-Care 01 Condition: Good - Referral to Home Health Primary Care Physician: Freddie Hernández MD - Discharge Diagnosis/Problem(s) (1) UTI (urinary tract infection) SNOMED Code(s): 83932313 ICD Code: N39.0 - URINARY TRACT INFECTION, SITE NOT SPECIFIED Status: Acute Current Visit: Yes Qualifiers: Urinary tract infection type: site unspecified Hematuria presence: without hematuria Qualified Code(s): N39.0 - Urinary tract infection, site not specified (2) Renal insufficiency SNOMED Code(s): 939769938, 365679902 ICD Code: N28.9 - DISORDER OF KIDNEY AND URETER, UNSPECIFIED Status: Chronic Current Visit: No Problem Details: Baseline Cr 1.3 05/2020 Cr improved to 1.5 (3) Diabetes mellitus SNOMED Code(s): 68172672 ICD Code: E11.9 - TYPE 2 DIABETES MELLITUS WITHOUT COMPLICATIONS Status: Chronic Current Visit: No (4) Adenocarcinoma of colon SNOMED Code(s): 665345257, 057814771 ICD Code: C18.9 - MALIGNANT NEOPLASM OF COLON, UNSPECIFIED Status: Chronic Current Visit: Yes (5) S/P colon resection SNOMED Code(s): 855980173, 75531803, 45908607, 814352445 ICD Code: Z90.49 - ACQUIRED ABSENCE OF OTHER SPECIFIED PARTS OF DIGESTIVE TRACT Status: Chronic Current Visit: Yes Onset Date: ~10/15/16 (6) Hypokalemia SNOMED Code(s): 34254683 ICD Code: E87.6 - HYPOKALEMIA Status: Ruled-out Current Visit: Yes (7) Sepsis SNOMED Code(s): 34574179 ICD Code: A41.9 - SEPSIS, UNSPECIFIED ORGANISM Status: Resolved Current Visit: Yes Problem Details: Resolved Qualifiers: Sepsis type: sepsis due to unspecified organism Severe sepsis shock status: without septic shock (8) Dehydration SNOMED Code(s): 66307311 ICD Code: E86.0 - DEHYDRATION Status: Resolved Current Visit: No Problem Details: improving (9) Altered mental status SNOMED Code(s): 437069127 ICD Code: R41.82 - ALTERED MENTAL STATUS, UNSPECIFIED Status: Resolved Current Visit: No - Patient Summary/Data Hospital Course: Iker received 3 doses of Rocephin during hospital stay, he was not aware he was here until evening of HOD #1, has continued to be more alert over course of stay. His WBC went from 13.8 to 9.9, Cr went from 1.7 to 1.5. Urine culture: Enterobacter, sensitive to Rocephin, last temp 101.6F was 01/23 1600, switched to oral Cefdinir 300 mg bid 1 dose in hospital, will go home with 3 more doses. His blood sugars were 136 on admission, held Toujeo and Victoza, Humalog sliding scale used 4 units on 01/23, 7 units on 01/24 and 6 units so far today. IVF were discontinued 01/23 and has maintained oral hydration. - Patient Instructions Diet: Diabetic Diet Activity: As Tolerated Driving: May Drive Today Showering/Bathing: May Shower Notify Provider of: Fever, Increased Pain, Nausea and/or Vomiting Other/Special Instructions: Follow up with Dr Hernández on Saturday or Saturday next week to recheck urine & chemistry. Cefdinir 300 mg twice a day for urinary tract infection, you have 3 more doses to take which was sent to your pharmacy. - Discharge Plan *PRESCRIPTION DRUG MONITORING PROGRAM REVIEWED*: Not Applicable *COPY OF PRESCRIPTION DRUG MONITORING REPORT IN PATIENT JERMAINE: Not Applicable Prescriptions/Med Rec: Cefdinir [Omnicef] 300 mg PO BID 2 Days #3 cap Home Medications: Home Meds Liraglutide [Victoza] 1.8 mg SUBCUT DAILY 03/09/14 [History] Acetaminophen [Tylenol Extra Strength] 1,000 mg PO Q4HR PRN 06/25/14 [History] Cholecalciferol (Vitamin D3) [Vitamin D3] 1,000 unit PO DAILY 06/25/14 [History] Fluticasone Propionate [Flonase] 1 spray NASBOTH BEDTIME 06/25/14 [History] Lisinopril 20 mg PO DAILY 06/25/14 [History] Omeprazole [Prilosec] 20 mg PO DAILY 06/25/14 [History] Pregabalin [Lyrica] 150 mg PO BID 06/25/14 [History] atorvaSTATin [Lipitor] 10 mg PO BEDTIME 06/25/14 [History] carvediloL [Carvedilol] 50 mg PO BID 06/25/14 [History] Acetaminophen [Acetaminophen Extra Strength] 1,000 mg PO BID 01/22/21 [History] Aspirin 81 mg PO DAILY 01/22/21 [History] Beta-Carotene(A) w/C & E/Min [Prosight] 1 tab PO DAILY 01/22/21 [History] Chlorthalidone 25 mg PO DAILY 01/22/21 [History] Ferrous Sulfate 324 mg PO BID 01/22/21 [History] Insulin Glargine,Hum.Rec.Anlog [Toukaila Solostar] 120 units SUBCUT BEDTIME 01/22/21 [History] Mupirocin Oint [Bactroban Oint] 1 applic PO TID 01/22/21 [History] allopurinoL [Zyloprim] 100 mg PO DAILY 01/22/21 [History] amLODIPine [Norvasc] 5 mg PO DAILY 01/22/21 [History] metFORMIN [Glucophage] 1,000 mg PO BID 01/22/21 [History] traMADol HCl [Tramadol HCl] 50 mg PO Q6HR PRN 01/22/21 [History] Cefdinir [Omnicef] 300 mg PO BID 2 Days #3 cap 01/25/21 [Rx] Patient Handouts: Type 2 Diabetes Mellitus, Diagnosis, Adult, Cefdinir Capsules, Fall Prevention in Hospitals, Adult, Acute Urinary Retention, Male, [id number], You've Been Prescribed an Antibiotic in the Hospital for an Infection - CDC, Venous Thromboembolism Prevention Forms: ED Department Discharge Referrals: Freddie Hernández MD [Primary Care Provider] - - Discharge Summary/Plan Comment DC Time >30 min.: No - General Info Date of Service: 01/25/21 Subjective Update: He is feeling good, afebrile >24 hrs, Urine culture came back Enterobacter. No diarrhea, but soft stools. Eating and drinking well. - Patient Data Vitals - Most Recent: Last Vital Signs Temp 98.4 F 01/25/21 08:00 Pulse 60 01/25/21 09:43 Resp 14 01/25/21 08:00 BP 159/74 H 01/25/21 09:44 Pulse Ox 95 01/25/21 08:00 Weight - Most Recent: 222 lb 4.8 oz I&O - Last 24 hours: Intake & Output 01/24/21 01/25/21 01/25/21 22:59 06:59 14:59 Output Total 700 Balance -700 Lab Results - Last 24 hrs: Laboratory Results - last 24 hr 01/24/21 01/24/21 01/25/21 Range/Units 17:32 20:40 06:25 POC Glucose 235 H 271 H 257 H (80-116) mg/dL 01/25/21 Range/Units 11:21 POC Glucose 251 H (80-116) mg/dL Med Orders - Current: Current Medications Acetaminophen (Acetaminophen 500 Mg Tab) 500 mg PO Q4H PRN PRN Reason: Pain (Mild 1-3)/fever Last Admin: 01/23/21 16:52 Dose: 500 mg Documented by: Allopurinol (Allopurinol 100 Mg Tab) 100 mg PO DAILY [facility] Last Admin: 01/25/21 09:44 Dose: 100 mg Documented by: Amlodipine Besylate (Amlodipine 5 Mg Tab) 5 mg PO DAILY [facility] Last Admin: 01/25/21 09:44 Dose: 5 mg Documented by: Aspirin (Aspirin 81 Mg Tab.Chew) 81 mg PO DAILY [facility] Last Admin: 01/25/21 09:43 Dose: 81 mg Documented by: Atorvastatin Calcium (Atorvastatin 10 Mg Tab) 10 mg PO DAILY [facility] Last Admin: 01/25/21 09:43 Dose: 10 mg Documented by: Carvedilol (Carvedilol 25 Mg Tab) 50 mg PO BID [facility] Last Admin: 01/25/21 09:43 Dose: 50 mg Documented by: Cefdinir (Cefdinir 300 Mg Cap) 300 mg PO BID [facility] Stop: 01/26/21 21:01 Last Admin: 01/25/21 09:52 Dose: 300 mg Documented by: Dextrose/Water (50% Dextrose In Water 50 Ml Syringe) 50 ml IVPUSH ASDIRECTED PRN PRN Reason: Hypoglycemia Enoxaparin Sodium (Enoxaparin 40 Mg/0.4 Ml Syringe) 40 mg SUBCUT Q24H [facility] Last Admin: 01/24/21 17:44 Dose: 40 mg Documented by: Glucagon (Glucagon,Human Recombinant 1 Mg Vial) 1 mg IM ASDIRECTED PRN PRN Reason: Hypoglycemia Ibuprofen (Ibuprofen 200 Mg Tab) 200 mg PO Q4H PRN PRN Reason: Fever Last Admin: 01/23/21 03:03 Dose: 200 mg Documented by: Insulin Human Lispro (Insulin Lispro 100 Unit/Ml 3 Ml Kwikpen) 0 unit SUBCUT TIDMEALS [facility]; Protocol Last Admin: 01/25/21 12:56 Dose: 3 unit Documented by: Lisinopril (Lisinopril 20 Mg Tab) 20 mg PO DAILY [facility] Last Admin: 01/25/21 09:44 Dose: 20 mg Documented by: Metformin HCl (Metformin 1,000 Mg Tab) 1,000 mg PO BIDMEALS [facility] Last Admin: 01/25/21 07:28 Dose: 1,000 mg Documented by: Pantoprazole Sodium (Pantoprazole 40 Mg Tab.Cr) 40 mg PO ACBREAKFAST [facility] Last Admin: 01/25/21 06:39 Dose: 40 mg Documented by: Potassium Chloride (Potassium Chloride 20 Meq Tab.Er) 20 meq PO BID [facility] Last Admin: 01/25/21 09:43 Dose: 20 meq Documented by: Pregabalin (Pregabalin 75 Mg Cap) 150 mg PO BID [facility] Last Admin: 01/25/21 09:52 Dose: 150 mg Documented by: Sodium Chloride (Sodium Chloride 0.9% 10 Ml Syringe) 10 ml FLUSH DAILY PRN PRN Reason: Other Last Admin: 01/25/21 04:40 Dose: 10 ml Documented by: Discontinued Medications Acetaminophen (Acetaminophen 325 Mg Tab) 650 mg PO Q4H PRN PRN Reason: Pain (Mild 1-3)/fever Ceftriaxone Sodium (Ceftriaxone 1 Gm Vial) 1 gm IVPUSH Q24H [facility] Last Admin: 01/24/21 16:00 Dose: 1 gm Documented by: Enoxaparin Sodium (Enoxaparin 30 Mg/0.3 Ml Syringe) 30 mg SUBCUT Q24H [facility] Last Admin: 01/23/21 18:01 Dose: 30 mg Documented by: Ceftriaxone Sodium 1 gm/ (Sodium Chloride) 50 mls @ 200 mls/hr IV ONETIME ONE Stop: 01/22/21 15:15 Last Admin: 01/22/21 15:23 Dose: 200 mls/hr Documented by: Sodium Chloride (Normal Saline) 1,000 mls @ 999 mls/hr IV .BOLUS ONE Stop: 01/22/21 16:22 Last Admin: 01/22/21 15:23 Dose: 999 mls/hr Documented by: Sodium Chloride (Normal Saline) 1,000 mls @ 100 mls/hr IV ASDIRECTED [facility] Last Admin: 01/23/21 23:23 Dose: 100 mls/hr Documented by: Ibuprofen (Ibuprofen 400 Mg Tab) 400 mg PO Q6H PRN PRN Reason: Fever Insulin Human Lispro (Insulin Lispro 100 Unit/Ml 3 Ml Kwikpen) 0 unit SUBCUT TID PRN; Protocol PRN Reason: Hyperglycemia - Exam General: Reports: Alert, Oriented, Cooperative, No Acute Distress Lungs: Reports: Clear to Auscultation, Normal Respiratory Effort Cardiovascular: Reports: Regular Rate, Regular Rhythm GI/Abdominal Exam: Normal Bowel Sounds, Soft, Non-Tender Extremities: Pedal Edema (1+ BLE) *Q Meaningful Use (DIS) - VTE *Q VTE Mechanical Contraindications *Q: At Risk for Falls
== END 2021-01-25 13:30 | disposition home or self-care (01) | DRG 872 ==
LOC: FB.ED 13:56 → FB.MS 16:13
PROVIDERS: ADMIT Family Medicine; ATTEND Family Medicine
DX: A41.9 Sepsis, unspecified organism (principal); N39.0 Urinary tract infection, site not specified; I10 Essential (primary) hypertension; E11.9 Type 2 diabetes mellitus without complications; C18.9 Malignant neoplasm of colon, unspecified; Z85.038 Personal history of other malignant neoplasm of large intestine; N17.9 Acute kidney failure, unspecified; I13.0 Hypertensive heart and chronic kidney disease with heart failure and stage 1 through stage 4 chronic kidney disease, or unspecified chronic kidney disease; I50.9 Heart failure, unspecified; N18.9 Chronic kidney disease, unspecified; E11.22 Type 2 diabetes mellitus with diabetic chronic kidney disease; E87.6 Hypokalemia; E86.0 Dehydration; E78.00 Pure hypercholesterolemia, unspecified; K21.9 Gastro-esophageal reflux disease without esophagitis; Z96.649 Presence of unspecified artificial hip joint; Z96.659 Presence of unspecified artificial knee joint; Z87.891 Personal history of nicotine dependence; Z90.49 Acquired absence of other specified parts of digestive tract; Z79.899 Other long term (current) drug therapy; Z79.4 Long term (current) use of insulin; Z88.7 Allergy status to serum and vaccine
CPT/HCPCS: 36415; 80048; 80053; 81001; 82947; 83605; 85025; 87086; 87088; 87186; A9270-GY; J0696; J1650; J1815; J7030

== ENCOUNTER 2022-03-07 22:02 | Inpatient (IN) | payer MEDICARE, OTHER ==
[2022-03-07 22:54] LABS: ESTIMATED GFR 42 mL/min (>60)
[2022-03-07] MEDS ORDERED: 50% Dextrose in Water 50 ML Syringe IVPUSH PRN (23:02)
[2022-03-07] MEDS ORDERED: Insulin Lispro 100 Unit/ML 3 ML KwikPen SUBCUT STA (23:02)
[2022-03-07] MEDS ORDERED: Glucagon,Human Recombinant 1 MG Vial IM PRN (23:02)
[2022-03-07] MEDS ORDERED: Sodium Chloride 0.9% 1,000 ML IV SCH (23:15)
[2022-03-08] MEDS ORDERED: Insulin Lispro 100 Unit/ML 3 ML KwikPen SUBCUT ONE
[2022-03-08] MEDS ORDERED: Ondansetron 4 MG/2 ML SDV IV PRN (00:09)
[2022-03-08] MEDS ORDERED: NS + KCl 20mEq/L 1,000 ML IV SCH (00:15)
[2022-03-08] MEDS ORDERED: 50% Dextrose in Water 50 ML Syringe IVPUSH PRN (00:19)
[2022-03-08] MEDS ORDERED: Glucagon,Human Recombinant 1 MG Vial IM PRN (00:19)
[2022-03-08] MEDS ORDERED: traMADol 50 MG Tab PO PRN (00:23)
[2022-03-08] MEDS ORDERED: Acetaminophen 500 MG Tab PO PRN (00:23)
[2022-03-08] MEDS: cefTRIAXone 1 GM Vial IVPUSH SCH (02:41)
[2022-03-08] MEDS ORDERED: Acetaminophen Soln 160 MG/5 ML UD Cup PO STA (03:00)
[2022-03-08 06:43] LABS: ESTIMATED GFR 60 mL/min (>60)
[2022-03-08] MEDS: Insulin Lispro 100 Unit/ML 3 ML KwikPen SUBCUT SCH ×4 (08:24→21:06)
[2022-03-08] MEDS: Potassium Chloride 20 MEQ Tab.ER PO SCH ×3 (08:56→17:50)
[2022-03-08] MEDS: Enoxaparin 40 MG/0.4 ML Syringe SUBCUT SCH (08:57)
[2022-03-08] MEDS ORDERED: Mupirocin Oint 22 GM Tube TOP SCH (09:00)
[2022-03-08] MEDS ORDERED: Acetaminophen 500 MG Tab PO SCH (09:00)
[2022-03-08] MEDS ORDERED: Non-Formulary Medication 1 Each (Liraglutide [Victoza] 18 MG/3 ML Pen) SUBCUT SCH (09:00)
[2022-03-08] MEDS ORDERED: Beta-Carotene (Vitamin A) w/Vitamin C & E plus Minerals Tab PO SCH (09:00)
[2022-03-08] MEDS: Aspirin 81 MG Tab.Chew PO SCH (11:04)
[2022-03-08] MEDS: Lisinopril 5 MG Tab PO SCH (11:04)
[2022-03-08] MEDS: Carvedilol 25 MG Tab PO SCH ×2 (11:05→20:54)
[2022-03-08] MEDS: metFORMIN 1,000 MG Tab PO SCH ×2 (11:06→17:49)
[2022-03-08] MEDS: Pantoprazole 40 MG Tab.CR PO SCH (11:07)
[2022-03-08] MEDS: Allopurinol 100 MG Tab PO SCH (11:08)
[2022-03-08] MEDS: Cholecalciferol (Vitamin D3) 25 MCG Tab PO SCH (11:08)
[2022-03-08] MEDS: amLODIPine 5 MG Tab PO SCH (11:09)
[2022-03-08] MEDS: Ferrous Sulfate 325 MG Tab PO SCH ×2 (11:09→20:55)
[2022-03-08] MEDS: Clopidogrel 75 MG Tab PO SCH (11:10)
[2022-03-08] MEDS: Pregabalin 75 MG Cap PO SCH ×2 (11:15→21:02)
[2022-03-08] MEDS: NS + KCl 20mEq/L 1,000 ML IV SCH ×2 (11:49→22:14)
[2022-03-08] MEDS: Fluticasone NASAL Spray 16 GM Bottle NASBOTH SCH (20:55)
[2022-03-08] MEDS: atorvaSTATin 40 MG Tab PO SCH (20:55)
[2022-03-08] MEDS ORDERED: Insulin Glargine,Human Rec. Analog 100 Units/ML 3 ML Pen SUBCUT ONE (21:02)
[2022-03-08] MEDS: Insulin Glargine,Human Rec. Analog 100 Units/ML 3 ML Pen SUBCUT SCH (21:05)
[2022-03-09] MEDS: cefTRIAXone 1 GM Vial IVPUSH SCH (00:45)
[2022-03-09 06:42] LABS: ESTIMATED GFR 67 mL/min (>60)
[2022-03-09] MEDS: Pantoprazole 40 MG Tab.CR PO SCH (07:00)
[2022-03-09] MEDS: Aspirin 81 MG Tab.Chew PO SCH (10:00)
[2022-03-09] MEDS: Lisinopril 5 MG Tab PO SCH (10:00)
[2022-03-09] MEDS: Clopidogrel 75 MG Tab PO SCH (10:01)
[2022-03-09] MEDS: Carvedilol 25 MG Tab PO SCH ×2 (10:01→20:55)
[2022-03-09] MEDS: Ferrous Sulfate 325 MG Tab PO SCH ×2 (10:01→20:56)
[2022-03-09] MEDS: Allopurinol 100 MG Tab PO SCH (10:01)
[2022-03-09] MEDS: amLODIPine 5 MG Tab PO SCH (10:02)
[2022-03-09] MEDS: metFORMIN 1,000 MG Tab PO SCH ×2 (10:03→18:20)
[2022-03-09] MEDS: Cholecalciferol (Vitamin D3) 25 MCG Tab PO SCH (10:03)
[2022-03-09] MEDS: NS + KCl 20mEq/L 1,000 ML IV SCH (10:04)
[2022-03-09] MEDS: Enoxaparin 40 MG/0.4 ML Syringe SUBCUT SCH (10:04)
[2022-03-09] MEDS: Insulin Lispro 100 Unit/ML 3 ML KwikPen SUBCUT SCH ×4 (10:05→21:50)
[2022-03-09] MEDS: Pregabalin 75 MG Cap PO SCH ×2 (10:11→21:00)
[2022-03-09] MEDS ORDERED: hydrALAZINE 20 MG/ML SDV IVPUSH PRN (10:38)
[2022-03-09] MEDS ORDERED: Magnesium Sulfate/Water 2 GM in Premix Bag 1 BAG IV ONE (10:43)
[2022-03-09] MEDS: Clotrimazole 1% Crm 30 GM Tube TOP SCH ×2 (12:36→21:01)
[2022-03-09] MEDS: atorvaSTATin 40 MG Tab PO SCH (20:57)
[2022-03-09] MEDS: Fluticasone NASAL Spray 16 GM Bottle NASBOTH SCH (21:49)
[2022-03-09] MEDS: Insulin Glargine,Human Rec. Analog 100 Units/ML 3 ML Pen SUBCUT SCH (21:51)
[2022-03-09] MEDS: Sodium Chloride 0.9% 10 ML Syringe FLUSH PRN (22:30)
[2022-03-10] MEDS: cefTRIAXone 1 GM Vial IVPUSH SCH (00:45)
[2022-03-10] MEDS: Sodium Chloride 0.9% 10 ML Syringe FLUSH PRN (00:56)
[2022-03-10] MEDS: Pantoprazole 40 MG Tab.CR PO SCH (05:41)
[2022-03-10 06:31] LABS: ESTIMATED GFR 67 mL/min (>60)
[2022-03-10] MEDS: Insulin Lispro 100 Unit/ML 3 ML KwikPen SUBCUT SCH ×4 (07:53→21:05)
[2022-03-10] MEDS: metFORMIN 1,000 MG Tab PO SCH ×2 (07:57→18:53)
[2022-03-10] MEDS: Aspirin 81 MG Tab.Chew PO SCH (07:59)
[2022-03-10] MEDS: Clotrimazole 1% Crm 30 GM Tube TOP SCH ×2 (07:59→20:56)
[2022-03-10] MEDS: Ferrous Sulfate 325 MG Tab PO SCH ×2 (08:00→20:57)
[2022-03-10] MEDS: Carvedilol 25 MG Tab PO SCH ×2 (08:00→20:57)
[2022-03-10] MEDS: Enoxaparin 40 MG/0.4 ML Syringe SUBCUT SCH (08:01)
[2022-03-10] MEDS: Cholecalciferol (Vitamin D3) 25 MCG Tab PO SCH (08:02)
[2022-03-10] MEDS: Allopurinol 100 MG Tab PO SCH (08:02)
[2022-03-10] MEDS: Lisinopril 5 MG Tab PO SCH (08:03)
[2022-03-10] MEDS: Clopidogrel 75 MG Tab PO SCH (08:04)
[2022-03-10] MEDS: amLODIPine 5 MG Tab PO SCH (08:05)
[2022-03-10] MEDS: Pregabalin 75 MG Cap PO SCH ×2 (08:07→21:19)
[2022-03-10] MEDS: Ciprofloxacin 250 MG Tab PO SCH ×2 (10:42→20:58)
[2022-03-10] MEDS: Fluticasone NASAL Spray 16 GM Bottle NASBOTH SCH (20:56)
[2022-03-10] MEDS: atorvaSTATin 40 MG Tab PO SCH (20:57)
[2022-03-10] MEDS: Insulin Glargine,Human Rec. Analog 100 Units/ML 3 ML Pen SUBCUT SCH (21:05)
[2022-03-11] MEDS: Pantoprazole 40 MG Tab.CR PO SCH (05:56)
[2022-03-11] MEDS: Insulin Lispro 100 Unit/ML 3 ML KwikPen SUBCUT SCH ×4 (08:26→21:20)
[2022-03-11] MEDS: metFORMIN 1,000 MG Tab PO SCH ×2 (08:27→17:52)
[2022-03-11] MEDS: Ferrous Sulfate 325 MG Tab PO SCH ×2 (08:36→21:16)
[2022-03-11] MEDS: Aspirin 81 MG Tab.Chew PO SCH (08:36)
[2022-03-11] MEDS: Allopurinol 100 MG Tab PO SCH (08:36)
[2022-03-11] MEDS: amLODIPine 5 MG Tab PO SCH (08:36)
[2022-03-11] MEDS: Cholecalciferol (Vitamin D3) 25 MCG Tab PO SCH (08:36)
[2022-03-11] MEDS: Carvedilol 25 MG Tab PO SCH ×2 (08:37→21:15)
[2022-03-11] MEDS: Pregabalin 75 MG Cap PO SCH ×2 (08:40→21:22)
[2022-03-11] MEDS: Enoxaparin 40 MG/0.4 ML Syringe SUBCUT SCH (08:40)
[2022-03-11] MEDS: Ciprofloxacin 250 MG Tab PO SCH ×2 (08:40→21:15)
[2022-03-11] MEDS: Clotrimazole 1% Crm 30 GM Tube TOP SCH ×2 (08:41→21:17)
[2022-03-11] MEDS: Lisinopril 5 MG Tab PO SCH (08:41)
[2022-03-11] MEDS: Clopidogrel 75 MG Tab PO SCH (08:42)
[2022-03-11] MEDS: Fluticasone NASAL Spray 16 GM Bottle NASBOTH SCH (21:16)
[2022-03-11] MEDS: atorvaSTATin 40 MG Tab PO SCH (21:17)
[2022-03-11] MEDS: Insulin Glargine,Human Rec. Analog 100 Units/ML 3 ML Pen SUBCUT SCH (21:19)
[2022-03-12] MEDS: Pantoprazole 40 MG Tab.CR PO SCH (06:02)
[2022-03-12] MEDS: Insulin Lispro 100 Unit/ML 3 ML KwikPen SUBCUT SCH ×4 (09:42→20:24)
[2022-03-12] MEDS: Clotrimazole 1% Crm 30 GM Tube TOP SCH ×2 (09:45→20:25)
[2022-03-12] MEDS: Enoxaparin 40 MG/0.4 ML Syringe SUBCUT SCH (09:45)
[2022-03-12] MEDS: Clopidogrel 75 MG Tab PO SCH (09:45)
[2022-03-12] MEDS: metFORMIN 1,000 MG Tab PO SCH ×2 (09:46→17:41)
[2022-03-12] MEDS: Aspirin 81 MG Tab.Chew PO SCH (09:46)
[2022-03-12] MEDS: amLODIPine 5 MG Tab PO SCH (09:46)
[2022-03-12] MEDS: Carvedilol 25 MG Tab PO SCH ×2 (09:47→20:12)
[2022-03-12] MEDS: Ferrous Sulfate 325 MG Tab PO SCH ×2 (09:47→20:26)
[2022-03-12] MEDS: Cholecalciferol (Vitamin D3) 25 MCG Tab PO SCH (09:49)
[2022-03-12] MEDS: Allopurinol 100 MG Tab PO SCH (09:49)
[2022-03-12] MEDS: Ciprofloxacin 250 MG Tab PO SCH ×2 (09:56→20:25)
[2022-03-12] MEDS: Pregabalin 75 MG Cap PO SCH ×2 (09:56→20:25)
[2022-03-12] MEDS: Lisinopril 5 MG Tab PO SCH (09:57)
[2022-03-12] MEDS ORDERED: cloNIDine 0.1 MG Tab PO ONE (20:15)
[2022-03-12] MEDS: Insulin Glargine,Human Rec. Analog 100 Units/ML 3 ML Pen SUBCUT SCH (20:23)
[2022-03-12] MEDS: atorvaSTATin 40 MG Tab PO SCH (20:26)
[2022-03-12] MEDS: Fluticasone NASAL Spray 16 GM Bottle NASBOTH SCH (20:26)
[2022-03-13] MEDS: Pantoprazole 40 MG Tab.CR PO SCH (05:12)
[2022-03-13] MEDS: Insulin Lispro 100 Unit/ML 3 ML KwikPen SUBCUT SCH ×4 (07:55→20:23)
[2022-03-13] MEDS: metFORMIN 1,000 MG Tab PO SCH ×2 (07:57→18:28)
[2022-03-13] MEDS: Allopurinol 100 MG Tab PO SCH (08:42)
[2022-03-13] MEDS: Ferrous Sulfate 325 MG Tab PO SCH ×2 (08:42→20:20)
[2022-03-13] MEDS: amLODIPine 5 MG Tab PO SCH (08:42)
[2022-03-13] MEDS: Clopidogrel 75 MG Tab PO SCH (08:42)
[2022-03-13] MEDS: Aspirin 81 MG Tab.Chew PO SCH (08:42)
[2022-03-13] MEDS: Lisinopril 5 MG Tab PO SCH (08:42)
[2022-03-13] MEDS: Cholecalciferol (Vitamin D3) 25 MCG Tab PO SCH (08:42)
[2022-03-13] MEDS: Clotrimazole 1% Crm 30 GM Tube TOP SCH ×2 (08:43→20:21)
[2022-03-13] MEDS: Enoxaparin 40 MG/0.4 ML Syringe SUBCUT SCH (08:45)
[2022-03-13] MEDS: Carvedilol 25 MG Tab PO SCH ×2 (08:45→20:20)
[2022-03-13] MEDS: Pregabalin 75 MG Cap PO SCH ×2 (08:55→20:20)
[2022-03-13] MEDS: atorvaSTATin 40 MG Tab PO SCH (20:20)
[2022-03-13] MEDS: Fluticasone NASAL Spray 16 GM Bottle NASBOTH SCH (20:21)
[2022-03-13] MEDS: Insulin Glargine,Human Rec. Analog 100 Units/ML 3 ML Pen SUBCUT SCH (20:22)
[2022-03-14] MEDS: Pantoprazole 40 MG Tab.CR PO SCH (05:18)
[2022-03-14] MEDS: Insulin Lispro 100 Unit/ML 3 ML KwikPen SUBCUT SCH (08:03)
[2022-03-14] MEDS: metFORMIN 1,000 MG Tab PO SCH (08:05)
[2022-03-14] MEDS: Aspirin 81 MG Tab.Chew PO SCH (08:06)
[2022-03-14] MEDS: Carvedilol 25 MG Tab PO SCH (08:06)
[2022-03-14] MEDS: Clotrimazole 1% Crm 30 GM Tube TOP SCH (08:07)
[2022-03-14] MEDS: Ferrous Sulfate 325 MG Tab PO SCH (08:07)
[2022-03-14] MEDS: Enoxaparin 40 MG/0.4 ML Syringe SUBCUT SCH (08:08)
[2022-03-14] MEDS: Cholecalciferol (Vitamin D3) 25 MCG Tab PO SCH (08:09)
[2022-03-14] MEDS: Lisinopril 5 MG Tab PO SCH (08:09)
[2022-03-14] MEDS: amLODIPine 5 MG Tab PO SCH (08:09)
[2022-03-14] MEDS: Clopidogrel 75 MG Tab PO SCH (08:09)
[2022-03-14] MEDS: Allopurinol 100 MG Tab PO SCH (08:10)
[2022-03-14] MEDS: Pregabalin 75 MG Cap PO SCH (08:12)
[2022-03-14 08:15] VITALS: BP 175/80
[2022-03-14 13:11] VITALS: PULSE 65
== END 2022-03-14 10:53 | disposition home or self-care (01) | DRG 690 ==
LOC: FB.ED 22:02 → FB.MS 03-08 00:09 → OBSVTOIN 03-08 09:50
PROVIDERS: ADMIT Emergency Medicine; ATTEND Student in an Organized Health Care Education/Training Program
DX: N39.0 Urinary tract infection, site not specified (principal); R41.0 Disorientation, unspecified; E11.42 Type 2 diabetes mellitus with diabetic polyneuropathy; Z51.5 Encounter for palliative care; G93.40 Encephalopathy, unspecified; E66.9 Obesity, unspecified; E11.22 Type 2 diabetes mellitus with diabetic chronic kidney disease; M10.9 Gout, unspecified; G47.33 Obstructive sleep apnea (adult) (pediatric); Z20.822 Contact with and (suspected) exposure to COVID-19; E86.0 Dehydration; E87.6 Hypokalemia; E78.00 Pure hypercholesterolemia, unspecified; K21.9 Gastro-esophageal reflux disease without esophagitis; Z96.659 Presence of unspecified artificial knee joint; Z96.649 Presence of unspecified artificial hip joint; R82.71 Bacteriuria; G58.9 Mononeuropathy, unspecified; Z85.038 Personal history of other malignant neoplasm of large intestine; Z86.73 Personal history of transient ischemic attack (TIA), and cerebral infarction without residual deficits; Z94.9 Transplanted organ and tissue status, unspecified; Z79.82 Long term (current) use of aspirin; Z79.899 Other long term (current) drug therapy; Z79.02 Long term (current) use of antithrombotics/antiplatelets; Z87.891 Personal history of nicotine dependence; Z79.4 Long term (current) use of insulin; Z79.84 Long term (current) use of oral hypoglycemic drugs; Z88.7 Allergy status to serum and vaccine; Z90.49 Acquired absence of other specified parts of digestive tract; B96.89 Other specified bacterial agents as the cause of diseases classified elsewhere; I12.9 Hypertensive chronic kidney disease with stage 1 through stage 4 chronic kidney disease, or unspecified chronic kidney disease; N18.9 Chronic kidney disease, unspecified; Z68.34 Body mass index [BMI] 34.0-34.9, adult
CPT/HCPCS: 36415; 70450; 80053; 81001; 82947; 83735; 84100; 84484; 85025; 87086; 87088; 87186; 93005; 97161-GP; 97166-GO; 99284; 99285; A9270-GY; J0696; J1650; J1815; J1815-GY; J3475; J3480; J3490; U0002

== ENCOUNTER 2022-05-01 14:04 | Emergency (ER) | payer MEDICARE, OTHER ==
[2022-05-01 14:37] VITALS: PULSE 59
[2022-05-01] MEDS ORDERED: Acetaminophen 500 MG Tab PO ONE (15:59)
[2022-05-01] MEDS ORDERED: Ibuprofen 400 MG Tab PO ONE (15:59)
[2022-05-01 16:14] VITALS: BP 182/79
== END 2022-05-01 16:15 | disposition home or self-care (01) ==
LOC: FB.ED 14:04
DX: S09.90XA Unspecified injury of head, initial encounter (principal); S16.1XXA Strain of muscle, fascia and tendon at neck level, initial encounter; E78.00 Pure hypercholesterolemia, unspecified; I10 Essential (primary) hypertension; E66.9 Obesity, unspecified; Z68.31 Body mass index [BMI] 31.0-31.9, adult; Z88.7 Allergy status to serum and vaccine; Z79.899 Other long term (current) drug therapy; Z79.82 Long term (current) use of aspirin; Z79.4 Long term (current) use of insulin; Z79.84 Long term (current) use of oral hypoglycemic drugs; Z87.891 Personal history of nicotine dependence; W01.10XA Fall on same level from slipping, tripping and stumbling with subsequent striking against unspecified object, initial encounter
CPT/HCPCS: 70450; 72125; 99284; A9270

== ENCOUNTER 2022-05-12 14:28 | Emergency (ER) | payer MEDICARE, OTHER ==
[2022-05-12 16:37] VITALS: BP 180/89; PULSE 68
== END 2022-05-12 16:48 | disposition home or self-care (01) ==
LOC: FB.ED 14:28
DX: S09.90XA Unspecified injury of head, initial encounter (principal); I10 Essential (primary) hypertension; E11.9 Type 2 diabetes mellitus without complications; E66.9 Obesity, unspecified; Z68.30 Body mass index [BMI] 30.0-30.9, adult; Z88.7 Allergy status to serum and vaccine; Z79.899 Other long term (current) drug therapy; Z79.82 Long term (current) use of aspirin; Z79.84 Long term (current) use of oral hypoglycemic drugs; Z79.4 Long term (current) use of insulin; Z90.49 Acquired absence of other specified parts of digestive tract; W01.10XA Fall on same level from slipping, tripping and stumbling with subsequent striking against unspecified object, initial encounter
CPT/HCPCS: 70450; 99284

== ENCOUNTER 2024-04-30 11:15 | Emergency (ER) | payer MEDICARE, OTHER ==
[2024-04-30 11:24] VITALS: BP 134/67; PULSE 84
[2024-04-30] MEDS ORDERED: Sodium Chloride 0.9% 10 ML Syringe FLUSH PRN (11:33)
[2024-04-30 12:07] LABS: BASOPHILS ABSOLUTE AUTO 0.1 x10-3/uL (0.0-0.3); BASOPHILS PERCENT AUTO 0.4 % (0.3-3.8); EOSINOPHILS ABSOLUTE AUTO 0.3 x10-3/uL (0.0-0.6); EOSINOPHILS PERCENT AUTO 2.4 % (0.1-6.8); HEMATOCRIT 36.9 % (38.3-50.1); HEMOGLOBIN 11.9 g/dL (12.9-17.7); LYMPHOCYTES ABSOLUTE AUTO 1.4 x10-3/uL (0.5-4.5); LYMPHOCYTES PERCENT AUTO 10.8 % (15.8-45.3); MEAN CORPUSCULAR HEMOGLOBIN 26.3 pg (27.0-33.3); MEAN CORPUSCULAR HGB CONC 32.2 g/dL (28.7-35.3); MEAN CORPUSCULAR VOLUME 81.8 fL (80.8-98.7); MONOCYTES ABSOLUTE AUTO 0.8 x10-3/uL (0.0-1.2); MONOCYTES PERCENT AUTO 6.4 % (5.5-15.2); NEUTROPHILS ABSOLUTE AUTO 10.3 x10-3/uL (1.7-6.9); PLATELET COUNT,PLT 146 x10(3)uL (117-477); RED BLOOD CELL COUNT 4.51 x10(6)uL (3.90-5.90); RED CELL DISTRIBUTION WIDTH 15.5 % (12.4-15.0); WHITE BLOOD CELL COUNT,WBC 12.9 x10-3/uL (3.2-10.1)
[2024-04-30 12:17] LABS: A/G RATIO 0.8; ALANINE AMINOTRANSFERASE,ALT 26 U/L (12-36); ALKALINE PHOSPHATASE 88 IU/L (56-112); ASPARTATE AMNIOTRANSFERASE,AST 18 IU/L (5-25); BILIRUBIN TOTAL 0.9 mg/dL (0.1-1.3); CALCIUM 9.2 mg/dL (8.6-10.2); CARBON DIOXIDE,CO2 28 mmol/L (21-32); CHLORIDE,CL 104 mmol/L (100-110); ESTIMATED GFR 26 mL/min (>60); GLUCOSE RANDOM 99 mg/dL (80-116); POTASSIUM,K 4.2 mmol/L (3.5-5.3); SODIUM,NA 144 mmol/L (135-145)
[2024-04-30 12:25] LABS: LACTIC ACID 2.1 mmol/L (0.4-2.0)
[2024-04-30 12:26] LABS: C-REACTIVE PROTEIN 3.93 mg/dL (<0.50)
[2024-04-30 12:27] LABS: BLOOD UREA NITROGEN,BUN 34 mg/dL (7-18); BUN/CREATININE RATIO 14.2 (9-20)
[2024-04-30 12:28] LABS: CREATININE 2.4 mg/dL (0.70-1.30)
[2024-04-30] MEDS: Sodium Chloride 0.9% 1,000 ML IV ONE (12:35)
[2024-04-30 12:40] LABS: INFLUENZA A NAA NEGATIVE (NEGATIVE); INFLUENZA B NAA NEGATIVE (NEGATIVE); RESPIRATORY SYNCYTIAL VIR NAA NEGATIVE (NEGATIVE)
[2024-04-30 12:43] LABS: CORONAVIRUS COVID-19 NAA NEGATIVE (NEGATIVE)
[2024-04-30 15:33] LABS: APPEARANCE,URINE SLIGHTLY CLOUDY (CLEAR); BACTERIA,URINE MODERATE (NS); BILIRUBIN,URINE NEGATIVE (NEGATIVE); COLOR,URINE YELLOW (YELLOW); GLUCOSE,URINE NORMAL (NORMAL); KETONES,URINE NEGATIVE (NEGATIVE); LEUKOCYTE ESTERASE,URINE LARGE (NEGATIVE); NITRITE,URINE POSITIVE (NEGATIVE); OCCULT BLOOD,URINE LARGE (NEGATIVE); PROTEIN,URINE 30 mg/dL (NEGATIVE); SQUAMOUS EPITHELIAL CELLS,UR OCCASIONAL (NS,R,O); UROBILINOGEN,URINE NORMAL (NEGATIVE); WBC,URINE 20-30 (0-5)
[2024-04-30 15:47] LABS: A/G RATIO 0.7; ALANINE AMINOTRANSFERASE,ALT 22 U/L (12-36); ALBUMIN 2.8 g/dL (3.2-4.6); ALKALINE PHOSPHATASE 82 IU/L (56-112); ASPARTATE AMNIOTRANSFERASE,AST 21 IU/L (5-25); BILIRUBIN TOTAL 0.9 mg/dL (0.1-1.3); BLOOD UREA NITROGEN,BUN 32 mg/dL (7-18); CALCIUM 8.9 mg/dL (8.6-10.2); CARBON DIOXIDE,CO2 27 mmol/L (21-32); CHLORIDE,CL 106 mmol/L (100-110); ESTIMATED GFR 32 mL/min (>60); GLUCOSE RANDOM 78 mg/dL (80-116); POTASSIUM,K 4.1 mmol/L (3.5-5.3); PROTEIN TOTAL,TP 6.7 g/dL (6.0-8.0); SODIUM,NA 145 mmol/L (135-145)
[2024-04-30] MEDS: Sulfamethoxazole/Trimethoprim 800-160 MG Tab PO ONE (16:58)
== END 2024-04-30 17:20 | disposition home or self-care (01) ==
LOC: FB.ED 11:15
DX: N30.01 Acute cystitis with hematuria (principal); J02.9 Acute pharyngitis, unspecified; N18.32 Chronic kidney disease, stage 3b; E11.22 Type 2 diabetes mellitus with diabetic chronic kidney disease; E86.0 Dehydration; R06.02 Shortness of breath; E78.00 Pure hypercholesterolemia, unspecified; K21.9 Gastro-esophageal reflux disease without esophagitis; I12.9 Hypertensive chronic kidney disease with stage 1 through stage 4 chronic kidney disease, or unspecified chronic kidney disease; E66.9 Obesity, unspecified; Z90.49 Acquired absence of other specified parts of digestive tract; Z87.891 Personal history of nicotine dependence; Z79.4 Long term (current) use of insulin; Z79.85 Long-term (current) use of injectable non-insulin antidiabetic drugs; Z79.899 Other long term (current) drug therapy; Z79.84 Long term (current) use of oral hypoglycemic drugs; Z79.82 Long term (current) use of aspirin; Z79.51 Long term (current) use of inhaled steroids; Z88.7 Allergy status to serum and vaccine
CPT/HCPCS: 0241U; 36415; 71046; 80053; 81001; 82947; 83605; 83880; 85025; 86140; 87086; 87088; 87186; 96360; 99284; 99285-25; A9270-GY; C1758; J7030

== ENCOUNTER 2024-10-04 21:16 | Emergency (ER) | payer MEDICARE, OTHER ==
[2024-10-04 21:34] LABS: BASOPHILS ABSOLUTE AUTO 0.1 x10-3/uL (0.0-0.3); BASOPHILS PERCENT AUTO 0.6 % (0.3-3.8); EOSINOPHILS ABSOLUTE AUTO 0.7 x10-3/uL (0.0-0.6); EOSINOPHILS PERCENT AUTO 5.1 % (0.1-6.8); HEMATOCRIT 37.5 % (38.3-50.1); HEMOGLOBIN 12.4 g/dL (12.9-17.7); LYMPHOCYTES ABSOLUTE AUTO 1.7 x10-3/uL (0.5-4.5); LYMPHOCYTES PERCENT AUTO 12.3 % (15.8-45.3); MEAN CORPUSCULAR HEMOGLOBIN 27.5 pg (27.0-33.3); MEAN CORPUSCULAR HGB CONC 33.1 g/dL (28.7-35.3); MEAN CORPUSCULAR VOLUME 83.2 fL (80.8-98.7); MEAN PLATELET VOLUME 9.8 fL (6.7-11.0); MONOCYTES ABSOLUTE AUTO 0.7 x10-3/uL (0.0-1.2); MONOCYTES PERCENT AUTO 5.3 % (5.5-15.2); NEUTROPHILS ABSOLUTE AUTO 10.5 x10-3/uL (1.7-6.9); NEUTROPHILS PERCENT AUTO 76.7 % (40.3-71.8); PLATELET COUNT,PLT 149 x10(3)uL (117-477); RED BLOOD CELL COUNT 4.51 x10(6)uL (3.90-5.90); RED CELL DISTRIBUTION WIDTH 15.6 % (12.4-15.0); WHITE BLOOD CELL COUNT,WBC 13.7 x10-3/uL (3.2-10.1)
[2024-10-04 21:37] LABS: BLOOD UREA NITROGEN,BUN 25 mg/dL (7-18); BUN/CREATININE RATIO 14.7 (9-20); CALCIUM 9.4 mg/dL (8.6-10.2); CARBON DIOXIDE,CO2 29 mmol/L (21-32); CHLORIDE,CL 106 mmol/L (100-110); CREATININE 1.7 mg/dL (0.70-1.30); ESTIMATED GFR 39 mL/min (>60); GLUCOSE RANDOM 84 mg/dL (80-116); POTASSIUM,K 3.8 mmol/L (3.5-5.3); SODIUM,NA 142 mmol/L (135-145)
[2024-10-04 21:43] LABS: A/G RATIO 0.8; ALANINE AMINOTRANSFERASE,ALT 29 U/L (12-36); ALBUMIN 3.2 g/dL (3.2-4.6); ALKALINE PHOSPHATASE 82 IU/L (56-112); ASPARTATE AMNIOTRANSFERASE,AST 20 IU/L (5-25); BILIRUBIN TOTAL 0.6 mg/dL (0.1-1.3); PROTEIN TOTAL,TP 7.2 g/dL (6.0-8.0)
== END 2024-10-04 22:57 | disposition home or self-care (01) ==
LOC: FB.ED 21:16
DX: S09.90XA Unspecified injury of head, initial encounter (principal); S00.81XA Abrasion of other part of head, initial encounter; E11.649 Type 2 diabetes mellitus with hypoglycemia without coma; I10 Essential (primary) hypertension; E78.00 Pure hypercholesterolemia, unspecified; K21.9 Gastro-esophageal reflux disease without esophagitis; Z86.73 Personal history of transient ischemic attack (TIA), and cerebral infarction without residual deficits; Z90.49 Acquired absence of other specified parts of digestive tract; Z96.649 Presence of unspecified artificial hip joint; Z96.659 Presence of unspecified artificial knee joint; Z88.7 Allergy status to serum and vaccine; Z79.4 Long term (current) use of insulin; Z79.82 Long term (current) use of aspirin; Z79.84 Long term (current) use of oral hypoglycemic drugs; Z79.899 Other long term (current) drug therapy; W01.198A Fall on same level from slipping, tripping and stumbling with subsequent striking against other object, initial encounter
CPT/HCPCS: 36415; 70450; 80053; 82947; 84484; 85025; 93005; 93010; 99284; 99285